=== PATIENT | male | born 1985 | race Caucasian/White ===

== ENCOUNTER 2017-06-11 11:34 | Emergency (ER) | payer MEDICAID, OTHER ==
[~2017-06-11] VITALS: Ht 177.8 cm; Wt 117.9 kg
[2017-06-11 12:03] VITALS: BP 143/82
[2017-06-11] MEDS ORDERED: HYDROcodone-ACET 10/325MG TAB PO ONE (12:15)
[2017-06-11] MEDS ORDERED: KETOROLAC TROMETH 60MG/2ML VIAL IM ONE (12:15)
== END 2017-06-11 13:15 | disposition home or self-care (01) ==
LOC: ER 11:34
DX: S30.0XXA Contusion of lower back and pelvis, initial encounter (principal); Z88.0 Allergy status to penicillin; W18.39XA Other fall on same level, initial encounter; Y93.89 Activity, other specified; Y99.8 Other external cause status; Y92.89 Other specified places as the place of occurrence of the external cause
CPT/HCPCS: 72220; 96372; 99284; J1885

== ENCOUNTER 2018-09-08 11:44 | Emergency (ER) | payer MEDICAID ==
[~2018-09-08] VITALS: Ht 177.8 cm; Wt 99.8 kg
[2018-09-08 12:21] VITALS: BP 150/71
[2018-09-08] MEDS ORDERED: IBUPROFEN 800 MG TAB PO ONE (12:45)
[2018-09-08] MEDS ORDERED: traMADol HCL 50 MG TAB PO ONE (13:00)
== END 2018-09-08 13:27 | disposition home or self-care (01) ==
LOC: ER 11:44
DX: S90.31XA Contusion of right foot, initial encounter (principal); Z88.0 Allergy status to penicillin; W22.8XXA Striking against or struck by other objects, initial encounter; Y93.89 Activity, other specified; Y99.8 Other external cause status; Y92.89 Other specified places as the place of occurrence of the external cause
CPT/HCPCS: 73630

== ENCOUNTER 2024-04-11 00:09 | Inpatient (IN) | payer MEDICAID ==
[~2024-04-11] VITALS: Ht 175.3 cm; Wt 96.9 kg
[2024-04-11] VITALS (37 sets, daily range): BP systolic 129–204; BP diastolic 68–113; PULSE 100–137; RESP 14–45; TEMP 99–100.2; O2SAT 97–100
[2024-04-11] MEDS: ROCURONIUM 10MG/ML 10ML VIAL IV ONE ×4 (00:12→01:58)
[2024-04-11] MEDS: ETOMIDATE (2MG/ML) 20ML VIAL IV ONE ×2 (00:12→00:16)
--- NOTE | 2024-04-11 00:26 | ED.PDOC ---
Altered Mental Status HPI Comments 38-year-old male who came to ER via EMS for altered level of consciousness. Per EMS, patient was combative, agitated and disoriented at home. Patient has history of fentanyl and methamphetamine abuse. Patient was given Narcan by family members as paramedics were called. On scene, patient was still A&O 4 albeit he is still agitated and combative. Patient was given Versed 5mg IM and another Versed 5mg IM, followed with another dose of Narcan 0.5 IN. Patient then started having altered level of consciousness with respiratory distress with agonal breathing, grunting and retractions 10 minutes prior to arrival to the ER. Saturating at 70's on room air. Chief Complaint: ALOC Time Seen by MD: 00:26 Primary Care Provider: UNKNOWN Reviewed Notes: Closet Organizer Notes Allergies: Coded Allergies: Penicillins (Verified Allergy, Severe, 09/08/18) Information Source: Emergency Med Personnel Mode of Arrival: EMS Severity: Unable to Care for Self, Unresponsive Timing: Minutes Duration: Since onset Prehospital treatment: Treatment Quality: Decreased Alertness, Change in Behavior, Confusion Recent: Medication/Drug Abuse History of: IV Drug Use Past Medical History PAST MEDICAL HISTORY: Unobtainable Surgical History: Unobtainable Family History Family History: Unobtainable Social History Smoker: Unobtainable Alcohol: Unobtainable Drugs: Unobtainable Lives In: Home Unable to Obtain due to: Altered Mental Status Physical Exam General Appearance: Normal, Severe Distress HEENT: Normal ENT Inspection, Pharynx Normal, TMs Normal Neck: Full Range of Motion, Non-Tender, Normal, Normal Inspection Respiratory: Chest Non-Tender, Lungs Clear, No Accessory Muscle Use, No Respiratory Distress, Normal Breath Sounds Cardiovascular: No Edema, No JVD, No Murmur, No Gallop, Normal Peripheral Pulses, Regular Rate/Rhythm Breast Exam: Deferred Gastrointestinal: No Organomegaly, Non Tender, No Pulsatile Mass, Normal Bowel Sounds, Soft Genitalia: Deferred Pelvic: Deferred Rectal: Deferred Extremities: No calf tenderness, Normal capillary refill, Normal inspection, Normal range of motion, Non-tender, No pedal edema Musculoskeletal : Apperance: Normal Neurologic: Alert, contract law specialist II-XII nml as Tested, No Motor Deficits, Normal Affect, Normal Mood, No Sensory Deficits Cerebellar Function: Normal Reflexes: Normal Skin: Dry, Normal Color, Warm Lymphatic: No Adenopathy Was a procedure done? Was a procedure done?: Yes Sedation Sedation?: Yes Informed consent obtained: No Sedation start time: 00:16 Sedation end time: 00:46 Sedation total time: Patient is still sedated at this time Intubation Indication: Altered Mental Status, Airway Protection Prep: Preoxygenation Pretreated with: Sedation Medicated with: Other (Etomidate, Rocuronium) Intubation Approach: Orotracheal Intubation size: cm (8.0) Informed consent obtained: No Risks/benefits/alt described: No Differential Diagnosis (ALOC) Differential Diagnosis: Encephalopathy, CVA, Drug Overdose, ETOH Intoxication X-Ray, Labs, Meds, VS Vital Signs Date Time Temp Pulse Resp B/P (MAP) Pulse Ox O2 Delivery O2 Flow Rate FiO2 04/11/24 05:04 137/79 04/11/24 04:02 127/62 04/11/24 04:00 115 04/11/24 03:45 118 25 127/62 (83) 98 04/11/24 03:32 127/78 04/11/24 03:32 127/78 04/11/24 03:32 127/78 04/11/24 03:30 128 28 127/78 (94) 100 04/11/24 03:27 120 29 131/68 (89) 99 45 04/11/24 03:15 122 27 131/68 (89) 98 04/11/24 03:00 124 33 138/66 (90) 98 04/11/24 02:52 167/98 04/11/24 02:50 126 34 167/98 (121) 99 04/11/24 02:45 130 33 167/98 (121) 98 04/11/24 02:37 137 20 155/78 100 45 04/11/24 02:30 124 19 160/86 (110) 98 04/11/24 02:15 127 20 167/95 (119) 98 04/11/24 02:00 127 14 184/97 (126) 100 04/11/24 02:00 45 04/11/24 01:58 155/78 04/11/24 01:48 137 14 155/78 (103) 100 100 04/11/24 01:30 155/78 04/11/24 01:30 141 14 155/78 (103) 99 04/11/24 01:26 155/78 04/11/24 01:14 179/105 04/11/24 01:00 204/113 04/11/24 01:00 125 12 179/105 (129) 99 04/11/24 00:42 204/113 04/11/24 00:26 141 04/11/24 00:18 137 15 204/113 (143) 98 04/11/24 00:17 204/113 04/11/24 00:16 98.9 129 204/113 (143) 88 98.9 04/11/24 00:12 204/113 04/11/24 00:09 99.1 122 14 204/111 (142) 86 Lab Test 04/11/24 03:08 04/11/24 01:51 04/11/24 00:25 Range/Units Blood Gas Specimen Type Arterial Arterial Blood Gas Sample Site Right radial Right radial Blood Gas Patient Temperature 37.0 37.0 Arterial Blood Date Drawn [id number] Arterial Blood pH 7.386 7.192 *L 7.350-7.450 Arterial Blood Partial Pressure CO2 48.6 H 86.4 *H 35.0-48.0 mmHg Arterial Blood Partial Pressure O2 98.9 305.3 *H 83.0-108.0 mmHg Arterial Blood HCO3 28.5 H 32.4 H 21.0-28.0 mmol/L Arterial Blood Oxygen Saturation 97.5 99.7 H 94.0-98.0 % Arterial Blood Base Excess 2.6 1.1 -2.0-3.0 mmol/L Arterial Blood Oxyhemoglobin 96.2 98.2 H 94.0-98.0 % Arterial Blood Carboxyhemoglobin 0.7 0.8 0.5-1.5 % Arterial Blood Methemoglobin 0.6 0.7 0.0-1.5 % Chad Test Modified Modified Blood Gas Total Hemoglobin 14.60 15.40 13.5-17.5 g/dL Blood Gas Set Respiration Rate 20.0 14.0 Blood Gas Modality Vent - ac Vent - ac FiO2 % 45.0 100.0 Blood Gas Tidal Volume 500.0 500.0 Blood Gas PEEP or CPAP 5.0 5.0 Blood Gas Critical Value Read Back Yes Blood Gas Notified Whom Dr. tracy Blood Gas Notified Time [id number] Blood Gas Notified By Mud Mixer Operator carlotn sylvester White Blood Count 13.1 H 4.4-10.8 10^3/uL Red Blood Count 5.39 4.5-5.90 10^6/uL Hemoglobin 14.5 13.5-17.5 g/dL Hematocrit 44.7 41.0-53.0 % Mean Corpuscular Volume 83.1 80.0-100.0 fL Mean Corpuscular Hemoglobin 27.0 L 28.0-32.0 pg Mean Corpuscular Hemoglobin Concent 32.5 32.0-36.0 g/dL Red Cell Distribution Width 14.5 H 11.8-14.3 % Platelet Count 358 140-450 10^3/uL Mean Platelet Volume 6.9 6.9-10.8 fL Neutrophils (%) (Auto) 71.3 37.0-80.0 % Lymphocytes (%) (Auto) 19.9 10.0-50.0 % Monocytes (%) (Auto) 5.5 0.0-12.0 % Eosinophils (%) (Auto) 2.9 0.0-7.0 % Basophils (%) (Auto) 0.4 0.0-2.0 % Neutrophils # (Auto) 9.4 H 1.6-8.6 10 ^3/uL Lymphocytes # (Auto) 2.6 0.4-5.4 10 ^3/uL Monocytes # (Auto) 0.7 0-1.3 10 ^3/uL Eosinophils # (Auto) 0.4 0-0.8 10 ^3/uL Basophils # (Auto) 0.1 0-0.2 10 ^3/uL Nucleated Red Blood Cells 0.1 % Prothrombin Time 11.1 9.3-11.8 sec Prothrombin Time INR 1.05 0.9-1.15 Activated Partial Thromboplast Time 35.8 H 24.5-34.5 SEC Sodium Level 136 136-145 mmol/L Potassium Level 4.0 3.5-5.1 mmol/L Chloride Level 103 98-107 mmol/L Carbon Dioxide Level 29 20-31 mmol/L Anion Gap 4 L 5-15 Blood Urea Nitrogen 12 9-23 mg/dL Creatinine 1.09 0.700-1.30 mg/dL Glomerular Filtration Rate Calc 90 >90 mL/min BUN/Creatinine Ratio 11.0 10.0-20.0 Serum Glucose 126 H 74-106 mg/dL Lactic Acid Level 1.1 0.4-2.0 mmol/L Calcium Level 9.4 8.7-10.4 mg/dL Magnesium Level 2.1 1.6-2.6 mg/dL Total Bilirubin 0.2 0.2-1.0 mg/dL Aspartate Amino Transferase (AST) 27 13-40 U/L Alanine Aminotransferase (ALT) 31 7-40 U/L Alkaline Phosphatase 93 46-116 U/L Total Protein 7.6 5.7-8.2 g/dL Albumin 4.3 3.2-4.8 g/dL Plasma/Serum Blood Alcohol 7.3 <10 mg/dL Current Medications Medications (Trade) Dose Ordered Sig/Jen Route Start Time Stop Time Status Last Admin Propofol 100 ml @ 2.73 mls/hr Q24H IV 04/11/24 00:30 04/11/24 01:00 Sodium Chloride 1,000 ml @ 1,000 mls/hr Q1H ONCE IVB 04/11/24 00:30 04/11/24 01:29 DC 04/11/24 00:30 Ceftriaxone Sodium 50 ml @ 100 mls/hr ONCE ONCE IV 04/11/24 00:30 04/11/24 00:59 DC 04/11/24 00:30 Piperacillin Sod/ Tazobactam Sod 100 ml @ 100 mls/hr ONCE ONCE IV 04/11/24 00:30 04/11/24 01:29 DC 04/11/24 00:30 Sodium Chloride 1,000 ml @ 60 mls/hr [id number] IV 04/11/24 02:30 04/11/24 02:47 Midazolam HCl 50 ml @ 1 mls/hr Q24H IV 04/11/24 03:30 04/11/24 03:32 Fentanyl Citrate 100 mcg ONCE ONCE IV 04/11/24 04:15 04/11/24 04:16 DC 04/11/24 05:04 Time of 1ST Reevaluation: 00:18 Reevaluation 1ST: Unchanged Time of 2ND Reevaluation: 01:00 Reevaluation 2ND: Unchanged Patient Education/Counseling: Pt Unresponsive Family Education/Counseling: No Family Present Departure 1 Departure Time of Disposition: 01:15 Impression: Primary Impression: Altered mental status Additional Impressions: Aspiration pneumonia Respiratory failure with hypoxia Disposition: 09 ADMITTED INPATIENT Condition: Critical Critical Care Note Critical Care Time?: Yes (35 min-critical care time only) Critical care comment: Total critical care time: Approximately 36 minutes Due to a high probability of clinically significant, life threatening deterioration, the patient required my highest level of preparedness to intervene emergently and I personally spent this critical care time directly and personally managing the patient. This critical care time included obtaining a history; examining the patient; pulse oximetry; ordering and review of studies; arranging urgent treatment with development of a management plan; evaluation of patient's response to treatment; frequent reassessment; and, discussions with other providers. This critical care time was performed to assess and manage the high probability of imminent, life-threatening deterioration that could result in multi-organ failure. It was exclusive of separately billable procedures and treating other patients. Stability Stability form required: No Heart Score Heart Score: Heart Score Response (Comments) Value History N/A 0 EKG N/A 0 Age N/A 0 Risk Factors N/A 0 Troponin N/A 0 Total 0 I personally scribed for CRISTI TRACY MD ([email or web address]) on 04/11/24 at 00:26. Electronically submitted by Piyush Spear ([email or web address]). I personally scribed for CRISTI TRACY MD ([email or web address]) on 04/11/24 at 00:43. Electronically submitted by Piyush Spear ([email or web address]). CRISTI TRACY MD Apr 11, 2024 00:26
[2024-04-11] MEDS: SODIUM CHLORIDE 0.9% 1,000 ML IVB ONE (00:30)
[2024-04-11] MEDS: cefTRIAXone 1GM/50ML D5W 50 ML IV ONE (00:30)
[2024-04-11] MEDS: PIPERACILLIN-TAZOB 3.375GM 100 ML IV ONE (00:30)
[2024-04-11] MEDS: PROPOFOL 100 ML IV ONE (00:42)
[2024-04-11 00:43] LABS: Basophils # (auto) 0.1 10 ^3/uL (0-0.2); Basophils % (auto) 0.4 % (0.0-2.0); Eosinophils # (auto) 0.4 10 ^3/uL (0-0.8); Eosinophils % (auto) 2.9 % (0.0-7.0); Hematocrit 44.7 % (41.0-53.0); Hemoglobin 14.5 g/dL (13.5-17.5); Lymphocytes # (auto) 2.6 10 ^3/uL (0.4-5.4); Lymphocytes % (auto) 19.9 % (10.0-50.0); Mean Corpuscular Hgb Conc. 32.5 g/dL (32.0-36.0); Mean Corpuscular Volume 83.1 fL (80.0-100.0); Monocytes # (auto) 0.7 10 ^3/uL (0-1.3); Monocytes % (auto) 5.5 % (0.0-12.0); Neutrophils # (auto) 9.4 10 ^3/uL (1.6-8.6); Neutrophils % (auto) 71.3 % (37.0-80.0); Nucleated Red Blood Cells % 0.1 %; Platelet Count (auto) 358 10^3/uL (140-450); Red Blood Cells 5.39 10^6/uL (4.5-5.90); Red Cell Distribution Width 14.5 % (11.8-14.3); White Blood Cell 13.1 10^3/uL (4.4-10.8)
[2024-04-11] MEDS: PROPOFOL 100 ML IV SCH (01:00)
[2024-04-11 01:03] LABS: Alanine Aminotransferase 31 U/L (7-40); Albumin 4.3 g/dL (3.2-4.8); Alkaline Phosphatase 93 U/L (46-116); Anion Gap 4 (5-15); Aspartate Aminotransferase 27 U/L (13-40); Blood Urea Nitrogen 12 mg/dL (9-23); Calcium 9.4 mg/dL (8.7-10.4); Carbon Dioxide 29 mmol/L (20-31); Chloride 103 mmol/L (98-107); Magnesium 2.1 mg/dL (1.6-2.6); Sodium 136 mmol/L (136-145)
[2024-04-11 01:04] LABS: Total Protein 7.6 g/dL (5.7-8.2)
--- NOTE | 2024-04-11 01:05 | DVH ---
EXAM: XY CHEST PORTABLE CLINICAL HISTORY: INTUBATION TECHNIQUE: Single AP view of the chest WID: COMPARISON: None FINDINGS: Lines and tubes: Endotracheal tube projects 0.9 cm above the tiffany. Gastric tube descends into the s tomach with the tip projecting over the gastric fundus. Chest: Upper limits of normal-sized heart. Small right pleural effusion and right basilar consolidation. Pro minence of the pulmonary vasculature No pneumothorax. The osseous structures are grossly intact. IMPRESSION: 1. Endotracheal and orogastric tubes in place as described. The endotracheal tube could be retracted 1.5 cm for more optimal positioning. 2. Prominence of the central pulmonary vasculature and upper limits of normal-sized heart. 3. Small right pleural effusion and right basal consolidation which could reflect atelectasis or pneu monia.
[2024-04-11 01:09] LABS: Bilirubin, Total 0.2 mg/dL (0.2-1.0); Glucose 126 mg/dL (74-106)
[2024-04-11 01:21] LABS: INR 1.05 (0.9-1.15); Partial Thromboplastin Time 35.8 SEC (24.5-34.5); Prothrombin Time 11.1 sec (9.3-11.8)
[2024-04-11 01:49] LABS: Blood Alcohol 7.3 mg/dL (<10)
[2024-04-11 01:57] LABS: Base Excess 1.1 mmol/L (-2.0-3.0)
--- NOTE | 2024-04-11 02:02 | DVH ---
CLINICAL HISTORY: ALOC, suspect trauma TECHNIQUE: CT exam of the cervical spine was performed without intravenous contrast. This exam was pe rformed according to our departmental dose optimization program. Up-to-date CT equipment and radiatio n dose reduction techniques are utilized as appropriate. COMPARISON: None FINDINGS: There is normal cervical alignment. The vertebral body heights are maintained. No acute cervical frac ture or subluxation is identified. Mild multilevel cervical spondylosis with multilevel osteophyte fo rmation. Multilevel facet and uncovertebral hypertrophy results in multilevel bony neural foraminal s tenosis which is up to a moderate degree on the left and mild on the right at C3-C4. 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 No significant central o r neural foraminal narrowing is identified. The paraspinous soft tissues are unremarkable. Interlobu lar septal thickening in the lung apices. Endotracheal and orogastric tubes are in place. Fluid layer s in the naso and oropharynx. Paranasal sinus mucosal thickening. Multiple dental caries and periapical lucencies within visualized maxillary and mandibular teeth. IMPRESSION: 1. No acute fracture or traumatic malalignment. 2. Mild cervical spondylosis with moderate left and mild right neural foraminal stenosis at C3-C4. 3. Interstitial pulmonary edema in the visualized lung apices. 4. Endotracheal and orogastric tubes in place. 5. Multiple dental caries and periapical lucencies within visualized maxillary and mandibular teeth.
--- NOTE | 2024-04-11 02:06 | DVH ---
CLINICAL HISTORY: ALOC TECHNIQUE: Helical imaging carried out from skull base to vertex without intravenous contrast. This e xam was performed according to our departmental dose optimization program. Up-to-date CT equipment an d radiation dose reduction techniques are utilized as appropriate. COMPARISON: None FINDINGS: Low-lying cerebellar tonsils The ventricles and subarachnoid spaces are normal in size and configuration. There is no midline alesia ft or mass effect. The elliott white matter interfaces are maintained. The basal cisterns are patent. Th ere is no evidence of acute intracranial hemorrhage or extra-axial fluid collection. The mastoid air cells are well aerated. There is mild paranasal sinus mucosal thickening. IMPRESSION: 1. No acute intracranial abnormality. 2. Low-lying cerebellar tonsils.
[2024-04-11] MEDS ORDERED: ONDANSETRON HCL 4 MG/2 ML VIAL IV PRN (02:30)
[2024-04-11] MEDS ORDERED: DOCUSATE SOD 100 MG CAP PO PRN (02:30)
[2024-04-11] MEDS ORDERED: ACETAMINOPHEN 325 MG TAB PO PRN (02:30)
[2024-04-11] MEDS: SODIUM CHLORIDE 0.9% 1,000 ML IV SCH (02:47)
[2024-04-11 03:12] LABS: Base Excess 2.6 mmol/L (-2.0-3.0)
[2024-04-11] MEDS: MIDAZOLAM DRIP 50 mg/50mL 50 ML IV SCH (03:32)
[2024-04-11] MEDS: fentaNYL CITRATE 100 MCG/2 ML VL IV ONE (05:04)
[2024-04-11] MEDS ORDERED: MORPHINE SULFATE INJ 2 MG/ml SYRG IV PRN (05:15)
[2024-04-11] MEDS ORDERED: NITROGLYCERIN 0.4 MG SL TAB SL PRN (05:15)
--- NOTE | 2024-04-11 05:17 | DVHHP2 ---
History of Present Illness Reason for Visit: Altered mental status History of Present Illness The patient is a 38-year-old male with unknown past medical history presented to [facility] ED for evaluation of altered level of consciousness. As reported by EMS, patient was combative, agitated, and disoriented at home. Patient was noted to have history of fentanyl and methamphetamine abuse and was given Narcan by family member as trouble tracer were called. On the scene, patient continued to be agitated and combative, was given Versed 5 mg a.m., followed by another dose of Narcan 0.5 injectable. Patient became altered with respiratory distress agonal breathing, grunting, retractions 10 minutes prior to arrival to the ED, O2 saturation in the 70s on room air and was subsequently intubated due to high probability of clinically significant life-threatening deterioration. Laboratory data shows elevated WBC 13.1, platelets 358, sodium 136, potassium 4.0, BUN 12, creatinine 1.09, glucose 126, plasma/serum alcohol 7.3. Chest x-ray revealing small right pleural effusion and right basal consolidation which could reflect atelectasis or pneumonia. Please see medication orders section in the computer. On my assessment, patient remains fully intubated, no diaphoresis, no diarrhea, no vomiting, no fever, no chills. Patient was admitted for further evaluation and medical management. Past Medical History No past medical history on file Past Surgical History No past surgical history on file Family History Reviewed, noncontributory to the management of this case. Past Social History The patient lives at home, no history of smoking, alcohol, uses fentanyl and methamphetamine. Review of Systems Constitutional: No: Fever, Chills, Sweats, Weakness, Malaise, Other Eyes: No: Pain, Vision change, Conjunctivae inflammation, Eyelid inflammation, Other, Redness ENT: No: Ear pain, Ear discharge, Nose pain, Nose discharge, Nose congestion, Mouth pain, Mouth swelling, Throat pain, Throat swelling, Other Respiratory: Shortness of breath; No: Cough, Dry, SOB with excertion, Wheezing, Hemoptysis, Pleuritic Pain, Sputum, Wheezing, Other Cardiovascular: No: Chest Pain, Palpitations, Orthopnea, Paroxysmal Noc. Dyspnea, Edema, Lt Headedness, Other Gastrointestinal: No: Nausea, Vomiting, Abdominal Pain, Diarrhea, Constipation, Melena, Hematochezia, Other Genitourinary: No Dysuria, No Frequency, No Incontinence, No Hematuria, No Retention, No Other Musculoskeletal: No: other, neck pain, shoulder pain, arm pain, back pain, hand pain, leg pain, foot pain Skin: No: Rash, Lesions, Jaundice, Bruising, Other Neurological: Other (Altered level of consciousness); No: Weakness, Numbness, Incoordination, Change in speech, Confusion, Seizures Allergies: Coded Allergies: Penicillins (Verified Allergy, Severe, 09/08/18) Medications Current Medications Medications Dose Ordered Sig/Jen Route Start Time Stop Time Status Last Admin Dose Admin Propofol 100 ml @ 2.73 mls/hr Q24H IV 04/11/24 00:30 04/11/24 01:00 2.73 MLS/HR Ceftriaxone Sodium 50 ml @ 100 mls/hr DAILY@09 IV 04/12/24 09:00 Azithromycin 250 ml @ 125 mls/hr DAILY IV 04/11/24 10:00 Sodium Chloride 1,000 ml @ 60 mls/hr [id number] IV 04/11/24 02:30 04/11/24 02:47 60 MLS/HR Acetaminophen/ Hydrocodone Bitart 1 tab Q4HP PRN PO 04/11/24 02:30 Ondansetron HCl 4 mg Q4HP PRN IV 04/11/24 02:30 Docusate Sodium 100 mg BIDPRN PRN PO 04/11/24 02:30 Acetaminophen 650 mg Q6HP PRN PO 04/11/24 02:30 Midazolam HCl 50 ml @ 1 mls/hr Q24H IV 04/11/24 03:30 04/11/24 03:32 1 MLS/HR Exam Vital Signs Vital Signs Date Time Temp Pulse Resp B/P (MAP) Pulse Ox O2 Delivery O2 Flow Rate FiO2 04/11/24 05:04 137/79 04/11/24 04:00 115 04/11/24 03:45 25 98 04/11/24 03:27 45 04/11/24 00:16 98.9 98.9 General Appearance: Other (Fully intubated) HEENT: Atraumatic, PERRLA, EOMI, Mucous membr. moist/pink Respiratory: Normal air movement, Other (Fully intubated) Cardiovascular: Regular rate, Normal S1, Normal S2, No murmurs Abdominal: Normal bowel sounds, Soft, No tenderness, No hepatospenomegaly, No masses Extremities: No clubbing, No cyanosis, No edema, Normal pulses, No tenderness/swelling Skin: No rashes, No breakdown, No significant lesion Neuro: Other (Altered level of consciousness) Psych/Mental Status: Other (Altered mental status) Labs/Xrays Labs Test 04/11/24 03:08 04/11/24 01:51 04/11/24 00:25 Range/Units Blood Gas Specimen Type Arterial Blood Gas Sample Site Right radial Blood Gas Patient Temperature 37.0 Arterial Blood Date Drawn [id number] Arterial Blood pH 7.386 7.350-7.450 Arterial Blood Partial Pressure CO2 48.6 H 35.0-48.0 mmHg Arterial Blood Partial Pressure O2 98.9 83.0-108.0 mmHg Arterial Blood HCO3 28.5 H 21.0-28.0 mmol/L Arterial Blood Oxygen Saturation 97.5 94.0-98.0 % Arterial Blood Base Excess 2.6 -2.0-3.0 mmol/L Arterial Blood Oxyhemoglobin 96.2 94.0-98.0 % Arterial Blood Carboxyhemoglobin 0.7 0.5-1.5 % Arterial Blood Methemoglobin 0.6 0.0-1.5 % Chad Test Modified Blood Gas Total Hemoglobin 14.60 13.5-17.5 g/dL Blood Gas Set Respiration Rate 20.0 Blood Gas Modality Vent - ac FiO2 % 45.0 Blood Gas Tidal Volume 500.0 Blood Gas PEEP or CPAP 5.0 Blood Gas Critical Value Read Back Yes Blood Gas Notified Whom Dr. tracy Blood Gas Notified Time [id number] Blood Gas Notified By Jesus Alberto sylvester White Blood Count 13.1 H 4.4-10.8 10^3/uL Red Blood Count 5.39 4.5-5.90 10^6/uL Hemoglobin 14.5 13.5-17.5 g/dL Hematocrit 44.7 41.0-53.0 % Mean Corpuscular Volume 83.1 80.0-100.0 fL Mean Corpuscular Hemoglobin 27.0 L 28.0-32.0 pg Mean Corpuscular Hemoglobin Concent 32.5 32.0-36.0 g/dL Red Cell Distribution Width 14.5 H 11.8-14.3 % Platelet Count 358 140-450 10^3/uL Mean Platelet Volume 6.9 6.9-10.8 fL Neutrophils (%) (Auto) 71.3 37.0-80.0 % Lymphocytes (%) (Auto) 19.9 10.0-50.0 % Monocytes (%) (Auto) 5.5 0.0-12.0 % Eosinophils (%) (Auto) 2.9 0.0-7.0 % Basophils (%) (Auto) 0.4 0.0-2.0 % Neutrophils # (Auto) 9.4 H 1.6-8.6 10 ^3/uL Lymphocytes # (Auto) 2.6 0.4-5.4 10 ^3/uL Monocytes # (Auto) 0.7 0-1.3 10 ^3/uL Eosinophils # (Auto) 0.4 0-0.8 10 ^3/uL Basophils # (Auto) 0.1 0-0.2 10 ^3/uL Nucleated Red Blood Cells 0.1 % Prothrombin Time 11.1 9.3-11.8 sec Prothrombin Time INR 1.05 0.9-1.15 Activated Partial Thromboplast Time 35.8 H 24.5-34.5 SEC Sodium Level 136 136-145 mmol/L Potassium Level 4.0 3.5-5.1 mmol/L Chloride Level 103 98-107 mmol/L Carbon Dioxide Level 29 20-31 mmol/L Anion Gap 4 L 5-15 Blood Urea Nitrogen 12 9-23 mg/dL Creatinine 1.09 0.700-1.30 mg/dL Glomerular Filtration Rate Calc 90 >90 mL/min BUN/Creatinine Ratio 11.0 10.0-20.0 Serum Glucose 126 H 74-106 mg/dL Lactic Acid Level 1.1 0.4-2.0 mmol/L Calcium Level 9.4 8.7-10.4 mg/dL Magnesium Level 2.1 1.6-2.6 mg/dL Total Bilirubin 0.2 0.2-1.0 mg/dL Aspartate Amino Transferase (AST) 27 13-40 U/L Alanine Aminotransferase (ALT) 31 7-40 U/L Alkaline Phosphatase 93 46-116 U/L Total Protein 7.6 5.7-8.2 g/dL Albumin 4.3 3.2-4.8 g/dL Plasma/Serum Blood Alcohol 7.3 <10 mg/dL PATIENT: HANANE RAE ACCT: [id number] UNIT: [id number] : 1985 LOC: ER ROOM / BED: / AGE / SEX: 38 / M ADM STATUS: REG ER SERVICE [id number] ORDERING PHYSICIAN: CRISTI TRACY MD PROCEDURE(s): HWOCT - HEAD WITHOUT CONTRAST REASON: ALOC ORDER NUMBER(s): [id number], ACCESSION NUMBER(s): [id number] CLINICAL HISTORY: ALOC TECHNIQUE: Helical imaging carried out from skull base to vertex without intravenous contrast. This exam was performed according to our departmental dose optimization program. Up-to-date CT equipment and radiation dose reduction t echniques are utilized as appropriate. COMPARISON: None FINDINGS: Low-lying cerebellar tonsils The ventricles and subarachnoid spaces are normal in size and configuration. There is no midline shift or mass effect. The elliott white matter interfaces are maintained. The basal cisterns are patent. There is no evidence of acute intracranial hemorrhage or extra-axial fluid collection. The mastoid air cells are well aerated. There is mild paranasal sinus mucosal thickening. IMPRESSION: 1. No acute intracranial abnormality. 2. Low-lying cerebellar tonsils. ORDERING PHYSICIAN: CRISTI TRACY MD PROCEDURE(s): CS2 - CERVICAL WITHOUT CONTRAST REASON: ALOC, suspect trauma ORDER NUMBER(s): [id number], ACCESSION NUMBER(s): [id number] CLINICAL HISTORY: ALOC, suspect trauma TECHNIQUE: CT exam of the cervical spine was performed without intravenous contrast. This exam was performed according to our departmental dose optimization program. Up-to-date CT equipment and radiation dose reduction techniques are utilized as appropriate. COMPARISON: None FINDINGS: There is normal cervical alignment. The vertebral body heights are maintained. No acute cervical fracture or subluxation is identified. Mild multilevel cervi jhonny spondylosis with multilevel osteophyte formation. Multilevel facet and uncovertebral hypertrophy results in multilevel bony neural foraminal stenosis which is up to a moderate degree on the left and mild on the right at C3-C4. 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 No significant central or neural foraminal narrowing is iden tified. The paraspinous soft tissues are unremarkable. Interlobular septal thickening in the lung apices. Endotracheal and orogastric tubes are in place. Fluid layers in the naso and oropharynx. Paranasal sinus mucosal thickening. Multiple dental caries and periapical lucencies within visualized maxillary and mandibular teeth. IMPRESSION: 1. No acute fracture or traumatic malalignment. 2. Mild cervical spondylosis with moderate left and mild right neural foraminal stenosis at C3-C4. 3. Interstitial pulmonary edema in the visualized lung apices. 4. Endotracheal and orogastric tubes in place. 5. Multiple dental caries and periapical lucencies within visualized maxillary and mandibular teeth. ORDERING PHYSICIAN: CRISTI TRACY MD PROCEDURE(s): CXRP - CHEST PORTABLE REASON: INTUBATION ORDER NUMBER(s): [id number], ACCESSION NUMBER(s): [id number] EXAM: XY CHEST PORTABLE CLINICAL HISTORY: INTUBATION TECHNIQUE: Single AP view of the chest WID: COMPARISON: None FINDINGS: Lines and tubes: Endotracheal tube projects 0.9 cm above the tiffany. Gastric tube descends into the stomach with the tip projecting over the gastric fundus. Chest: Upper limits of normal-sized heart. Small right pleural effusion and right basilar consolidation. Prominence of the pulmonary vasculature No pneumothorax. The osseous structures are grossly intact. IMPRESSION: 1. Endotracheal and orogastric tubes in place as described. The endotracheal tube could be retracted 1.5 cm for more optimal positioning. 2. Prominence of the central pulmonary vasculature and upper limits of normal- sized heart. 3. Small right pleural effusion and right basal consolidation which could reflect atelectasis or pneumonia. Assessment/Plan Assessment/Plan Altered mental status Leukocytosis, unspecified Aspiration pneumonia Acute respiratory failure with hypoxia Plan 1. Admit to intensive care unit 2. Breathing treatment 3. Pain control management 4. IV antibiotic management 5. Management of fluids and electrolytes 6. Consultation for pulmonology/hospitalist 7. Diagnostic test chest x-ray 8. DVT prophylaxis on SCDs 9. Repeat labs CBC, CMP in a.m. 10. Continue with current medical management 11. Treatment plan discussed with patient and RN. Patient verbalized understanding. Plan discussed with: Patient, Other (RN) My Orders Orders - GENNY LUGO DNP Procedure Category Date Status Time Azithromycin 500mg/ PHA 04/11/24 In Process 250ml (Zithromax 50 10:00 Complete Blood Count LAB 04/11/24 Logged 04:00 Comprehensive LAB 04/11/24 Logged Metabolic Panel 04:00 Allergies HANNAH 04/11/24 In Process 02:16 Code Status CODE 04/11/24 Transmitted 02:16 Sodium Chloride 0.9% PHA 04/11/24 In Process 02:30 Oxygen Per Hour RT 04/11/24 Transmitted 02:16 Hydrocodone-Acet PHA 04/11/24 In Process 5/325mg Tab (Rodney 02:30 Ondansetron Hcl PHA 04/11/24 In Process (Zofran) 02:30 Docusate Sodium PHA 04/11/24 In Process Capsule (Colace 02:30 Fall Risk Precautions HANNAH 04/11/[address] 02:16 Complete Blood Count LAB 04/12/24 Verified 04:00 Comprehensive LAB 04/12/24 Verified Metabolic Panel 04:00 Npo (Nothing By DIET 04/11/24 Transmitted Mouth) Diet Breakfast Condition: Serious HANNAH 04/11/24 In Process 02:16 Acetaminophen Tablet PHA 04/11/24 In Process (Tylenol Tablet) 02:30 Sequential HANNAH 04/11/24 In Process Compression Device Ceftriaxone 1gm/50ml PHA 04/12/24 In Process D5w (Rocephin) 09:00 Problem List: (1) Altered mental status (2) Aspiration pneumonia (3) Leukocytosis, unspecified (4) Respiratory failure with hypoxia Date of Service: Apr 11, 2024 Billing Provider: GENNY LUGO DNP Common Visit Codes: [id number] INP/OBS CARE (HIGH) GENNY LUGO DNP Apr 11, 2024 05:17
[2024-04-11 06:33] LABS: Basophils # (auto) 0 10 ^3/uL (0-0.2); Basophils % (auto) 0.2 % (0.0-2.0); Eosinophils # (auto) 0.1 10 ^3/uL (0-0.8); Eosinophils % (auto) 0.6 % (0.0-7.0); Hematocrit 41.6 % (41.0-53.0); Lymphocytes # (auto) 1.7 10 ^3/uL (0.4-5.4); Lymphocytes % (auto) 12.4 % (10.0-50.0); Mean Corpuscular Hemoglobin 27.4 pg (28.0-32.0); Mean Corpuscular Hgb Conc. 33.7 g/dL (32.0-36.0); Mean Corpuscular Volume 81.3 fL (80.0-100.0); Monocytes % (auto) 7.4 % (0.0-12.0); Neutrophils # (auto) 10.6 10 ^3/uL (1.6-8.6); Neutrophils % (auto) 79.4 % (37.0-80.0); Platelet Count (auto) 342 10^3/uL (140-450); Red Blood Cells 5.12 10^6/uL (4.5-5.90); Red Cell Distribution Width 14.1 % (11.8-14.3); White Blood Cell 13.4 10^3/uL (4.4-10.8)
[2024-04-11 06:45] LABS: Alanine Aminotransferase 30 U/L (7-40); Albumin 3.8 g/dL (3.2-4.8); Alkaline Phosphatase 84 U/L (46-116); Anion Gap 8 (5-15); Aspartate Aminotransferase 27 U/L (13-40); BUN/Creatinine Ratio 10.5 (10.0-20.0); Bilirubin, Total 0.4 mg/dL (0.2-1.0); Blood Urea Nitrogen 10 mg/dL (9-23); Calcium 9.4 mg/dL (8.7-10.4); Carbon Dioxide 27 mmol/L (20-31); Chloride 102 mmol/L (98-107); Glucose 96 mg/dL (74-106); Potassium 3.9 mmol/L (3.5-5.1); Sodium 137 mmol/L (136-145)
[2024-04-11 07:58] LABS: Base Excess 2.4 mmol/L (-2.0-3.0)
[2024-04-11 08:13] LABS: Urine Bacteria None Seen /hpf (None Seen)
[2024-04-11 08:28] LABS: Urine Blood Negative /uL (Negative); Urine Clarity Turbid (Clear); Urine Color Yellow (Yellow); Urine Protein, UAD TRACE (Negative); Urine Specific Gravity 1.026 (1.001-1.035); Urine Squamous Epithelial Cell None Seen /hpf (<5); Urine Urobilinogen Normal (Negative); Urine WBC 2 /hpf (0 - 3)
[2024-04-11 08:38] LABS: Opiate Scree,Urine Neg (NEGATIVE)
[2024-04-11 08:48] LABS: Amphetamine Screen, Urine Pos (NEGATIVE); Barbiturate Scree,Urine Neg (NEGATIVE); Benzodiazephine Screen, Urine Pos (NEGATIVE); Cannabinoid Screen, Urine Pos (NEGATIVE); Cocaine Screen, Urine Pos (NEGATIVE); Phencyclidine Screen, Urine Neg (NEGATIVE)
[2024-04-11] MEDS: AZITHROMYCIN 500MG/ 250ML 250 ML IV SCH (10:54)
[2024-04-11] MEDS ORDERED: ACETAMINOPHEN 650 mg PER 20.3 mL UD PO PRN (11:30)
--- NOTE | 2024-04-11 12:14 | DVHPN2 ---
Subjective Altered mental status Reviewed: Care Plan, H&P, Labs, Medications, Previous Orders, Radiology, Other Review of systems ALOC Changes from previous H/P or p: No Changes Eyes: No Pain, No Vision change, No Conjunctivae inflammation, No Eyelid inflammation, No Other, No Redness ENT: No Ear pain, No Ear discharge, No Nose pain, No Nose discharge, No Nose congestion, No Mouth pain, No Mouth swelling, No Throat pain, No Throat swelling, No Other Cardiovascular: No Chest Pain, No Palpitations, No Orthopnea, No Paroxysmal Noc. Dyspnea, No Edema, No Lt Headedness, No Other Respiratory: No Cough, No Dry; Shortness of breath; No SOB with excertion, No Wheezing, No Hemoptysis, No Pleuritic Pain, No Sputum, No Other Gastrointestinal: No Nausea, No Vomiting, No Abdominal Pain, No Diarrhea, No Constipation, No Melena, No Hematochezia, No Other Genitourinary: No Dysuria, No Frequency, No Incontinence, No Hematuria, No Retention, No Other Musculoskeletal: No other, No neck pain, No shoulder pain, No arm pain, No back pain, No hand pain, No leg pain, No foot pain Skin: No Rash, No Lesions, No Jaundice, No Bruising, No Other Objective Vitals Vital Signs Date Time Temp Pulse Resp B/P (MAP) Pulse Ox O2 Delivery O2 Flow Rate FiO2 04/11/24 10:56 137/78 04/11/24 10:44 106 25 99 30 04/11/24 10:00 100.6 100.6 04/11/24 07:30 Mechanical Ventilator+ Intake/Output Intake and Output 04/11/24 07:00 Intake Total 5 ml Balance 5 ml Intake IV Total 5 ml Exam Altered mental status. General Appearance: Other (Intubated and sedated) Lungs: Clear to auscultation Cardiovascular: Regular rate, Normal S1, Normal S2, No murmurs, Other Abdomen: Normal bowel sounds, Soft Skin: Dry, Intact Psych/Mental Status: Other (Intubated sedated) Medications Current Medications Medications Dose Ordered Sig/Jen Route Start Time Stop Time Status Last Admin Dose Admin Propofol 100 ml @ 2.73 mls/hr Q24H IV 04/11/24 00:30 04/11/24 10:56 27.3 MLS/HR Sodium Chloride 1,000 ml @ 60 mls/hr [id number] IV 04/11/24 02:30 04/11/24 10:54 60 MLS/HR Acetaminophen/ Hydrocodone Bitart 1 tab Q4HP PRN PO 04/11/24 02:30 Ondansetron HCl 4 mg Q4HP PRN IV 04/11/24 02:30 Docusate Sodium 100 mg BIDPRN PRN PO 04/11/24 02:30 Acetaminophen 650 mg Q6HP PRN PO 04/11/24 02:30 Midazolam HCl 50 ml @ 1 mls/hr Q24H IV 04/11/24 03:30 04/11/24 07:49 7 MLS/HR Nitroglycerin 0.4 mg Q5MINP PRN SL 04/11/24 05:15 Morphine Sulfate 2 mg Q30M PRN IV 04/11/24 05:15 Acetaminophen 650 mg Q4HP PRN PO 04/11/24 11:30 Clindamycin Phosphate 50 ml @ 50 mls/hr Q8HR IV 04/11/24 14:00 Levofloxacin/ Dextrose 100 ml @ 100 mls/hr DAILY IV 04/12/24 10:00 Laboratory Results Laboratory Tests 04/11/24 05:13 Chemistry Test 04/11/24 00:25 04/11/24 05:13 Albumin 4.3 g/dL (3.2-4.8) 3.8 g/dL (3.2-4.8) Calcium Level 9.4 mg/dL (8.7-10.4) 9.4 mg/dL (8.7-10.4) Magnesium Level 2.1 mg/dL (1.6-2.6) Total Protein 7.6 g/dL (5.7-8.2) 7.0 g/dL (5.7-8.2) Coagulation Test 04/11/24 00:25 Prothrombin Time 11.1 sec (9.3-11.8) Prothrombin Time INR 1.05 (0.9-1.15) Activated Partial Thromboplast Time 35.8 SEC (24.5-34.5) H LFT Test 04/11/24 00:25 04/11/24 05:13 Alanine Aminotransferase (ALT) 31 U/L (7-40) 30 U/L (7-40) Alkaline Phosphatase 93 U/L (46-116) 84 U/L (46-116) Aspartate Amino Transferase (AST) 27 U/L (13-40) 27 U/L (13-40) Total Bilirubin 0.2 mg/dL (0.2-1.0) 0.4 mg/dL (0.2-1.0) Urinalysis Test 04/11/24 07:55 Urine Color Yellow (Yellow) Urine Clarity Turbid (Clear) H Urine pH 7.0 (5.0-9.0) Urine Specific [place] 1.026 (1.001-1.035) Urine Protein Trace (Negative) H Urine Ketones 2+ (Negative) H Urine Blood Negative /uL (Negative) Urine Nitrite Negative (Negative) Urine Bilirubin Negative (Negative) Urine Urobilinogen Normal mg/dL (Negative) Urine Leukocyte Esterase Negative /uL (Negative) Urine RBC 45 /hpf (0 - 3) Urine WBC 2 /hpf (0 - 3) Urine Squamous Epithelial Cells None seen /hpf (<5) Urine Bacteria None seen /hpf (None Seen) Urine Glucose Normal mg/dL (Normal) Blood Gas Results Test 04/11/24 01:51 04/11/24 03:08 04/11/24 07:35 Arterial Blood pH 7.192 (7.350-7.450) 7.386 (7.350-7.450) 7.460 (7.350-7.450) FiO2 % 100.0 45.0 45.0 Labs and/or images reviewed: Labs reviewed by me, Image(s) reviewed by me Assessment/Plan Assessment/Plan 38-year-old male unknown medical history presents to the ER for altered level consciousness was brought in by EMS patient was combative agitated at home patient has a history of fentanyl and meth amphetamine abuse. Per ER staff nurse family gave Narcan x2 and was given Versed for agitation. The patient became to have respiratory distress and agonal breathing was intubated for airway protection. The patient is still in the ER intubated and chemically sedated. Assessment: -altered level consciousness -toxic encephalopathy -aspiration pneumonia -leukocytosis -drug abuse: Including fentanyl ,methamphetamines, alcohol, cannabis, cocaine and benzodiazepin. Plan: -repeat CBC BNP in a.m. daily -repeat chest x-ray in a.m. -changed antibiotic treatment clindamycin and Levaquin -chemically sedate patient for agitation -echo rule out endocarditis Plan discussed with: Other (Nurse) Date of Service: Apr 11, 2024 Billing Provider: KAMALJIT QUINTERO DEDICATED OWNER OPERATOR Common Visit Codes: [id number] CARE 30-74 MIN BIB [place] STUDENT DEDICATED OWNER OPERATOR Apr 11, 2024 12:13
[2024-04-11] MEDS: CLINDAMYCIN 300MG IV 50 ML IV SCH (14:31)
--- NOTE | 2024-04-11 15:15 | DVHSR ---
APPROVED REPORT EXAM: LIMITED Two-dimensional and M-mode echocardiogram with Doppler and color Doppler. Blood Pressure: 136/77 mmHg INDICATION rule out endocarditis RISK FACTORS Height: 5'9, Weight: 200 DIMENSIONS LVDd4.7 (3.8-5.7cm)LA (2D)3.6 (1.9-4.0cm)Aortic Root2.8 (2.0-3.7cm) LVDs3.2 (2.5-4.0cm)LA (MM) (1.9-4.0cm)Aortic Cusp Exc1.3 (1.5-2.0cm) EF (%) 55.0 (55-70%)Rt. Atrium3.7 (1.9-4.0cm)Asc. Aorta cm IVSd1.1 (0.7-1.1cm)RV (D) (1.8-2.4cm) PWd1.1 (0.7-1.1cm) Mitral Valve MitralMitral Stenosis E wave0.78m/sMV Mean GR.mmHg A wave0.86m/sMV Peak GR.mmHg E/A ratio0.92D MVAcm2 DECEL [id number] 1/2 Timems Aortic Valve Aortic ValveAortic Stenosis V11.32m/Rajeev Mean GR.6mmHg V21.52m/Rajeev Peak GR.9mmHg LVOT Diameter2.2 (1.8-2.4cm)Doppler AVA3.30cm2 LEFT VENTRICLE Normal left ventricular size and systolic function. Ejection fraction is estimated at 55-60%. No reg ional wall motion abnormalities. Left ventricular wall thickness is normal. Diastolic function is normal. RIGHT VENTRICLE Normal right ventricular size and systolic function. ATRIA Both atria are of normal size. MITRAL VALVE The mitral valve leaflets appear to be of normal structure and mobility. No significant mitral regur gitation. PULMONIC VALVE Not visualized. TRICUSPID VALVE Normal structure. No significant tricuspid regurgitation. PA pressure could not be adequately estim ated. AORTIC VALVE The aortic valve leaflets are not well visualized. No significant stenosis or regurgitation. GREAT VESSELS The aortic root and proximal ascending aorta are of normal size. PERICARDIAL EFFUSION No pericardial effusion. Other Information Quality : Technically LimitedRhythm : Technically limited study due to on vent.patient position. Conclusion Normal biventricular size and systolic function. No hemodynamically significant valvular disease. Visualization of the valves is limited. No pericardial effusion.
--- NOTE | 2024-04-11 19:23 | DVHINCON2 ---
Date of service: Apr 11, 2024 Referring Physician Alden Huizar NP Reason for Consultation Acute hypoxic respiratory failure requiring mechanical ventilator, aspiration pneumonia and pleural effusion. History of Present Illness A 38-year-old man with past medical history that includes polysubstance abuse (fentanyl and methamphetamine use) who was brought in to ED for evaluation of altered level of consciousness. Per EMS, patient was combative, agitated, and disoriented at home. Patient was given Narcan by family member as spoke maker were called. On the scene patient continued to be agitated and combative, was given Versed 5 mg followed by another dose of Narcan 0.5 injectable. Patient became altered with respiratory distress, agonal breathing, grunting, retractions 10 minutes prior to arrival to the ED, O2 saturation was 70s on room air and was subsequently intubated due to high probability of clinically significant life- threatening deterioration. Workup in ED showed WBC 13.1, platelets 358, sodium 136, potassium 4.0, BUN 12, creatinine 1.09, glucose 126, plasma/serum alcohol 7.3. Chest x-ray revealing small right pleural effusion and right basal consolidation which could reflect atelectasis or pneumonia. Patient was admitted for further care. Pulmonary consultation is requested for evaluation and management of acute hypoxic respiratory failure requiring mechanical ventilator, aspiration pneumonia and pleural effusion. Review of Systems: Unable to be obtained d/t intubated status Past Medical History: Polysubstance abuse Past Surgical History: Unknown Medications: Reviewed. Allergies: Penicillins. Family History: No family history of premature CAD. No family history of lung disorders. Social History: Nonsmoker. No alcohol use. Patient uses fentanyl and methamphetamine. Allergies: Coded Allergies: Penicillins (Verified Allergy, Severe, 09/08/18) Current Medications Current Medications Medications (Trade) Dose Ordered Sig/Jen Route PRN Reason Start Time Stop Time Status Last Admin Propofol 100 ml @ 2.73 mls/hr Q24H IV 04/11/24 00:30 04/11/24 16:49 Ceftriaxone Sodium 50 ml @ 100 mls/hr DAILY@09 IV 04/12/24 09:00 04/11/24 11:32 DC Azithromycin 250 ml @ 125 mls/hr DAILY IV 04/11/24 10:00 04/11/24 11:32 DC 04/11/24 10:54 Sodium Chloride 1,000 ml @ 60 mls/hr [id number] IV 04/11/24 02:30 04/11/24 10:54 Acetaminophen/ Hydrocodone Bitart ([place] 5/325MG Tab) 1 tab Q4HP PRN PO MODERATE PAIN (4-6 PAIN SCALE) 04/11/24 02:30 Ondansetron HCl (Zofran) 4 mg Q4HP PRN IV NAUSEA / VOMITING 04/11/24 02:30 Docusate Sodium (Colace Capsule) 100 mg BIDPRN PRN PO FOR CONSTIPATION 04/11/24 02:30 Acetaminophen (Tylenol Tablet) 650 mg Q6HP PRN PO PAIN SCALE 1-3 OR TEMP>100.4 04/11/24 02:30 Midazolam HCl 50 ml @ 1 mls/hr Q24H IV 04/11/24 03:30 04/11/24 17:16 Nitroglycerin (Ntrostat Sublingual) 0.4 mg Q5MINP PRN SL FOR CHEST PAIN 04/11/24 05:15 Morphine Sulfate 2 mg Q30M PRN IV FOR CHEST PAIN 04/11/24 05:15 Acetaminophen (Tylenol Solution Oral) 650 mg Q4HP PRN PO PAIN SCALE 1-3 OR TEMP>100.4 04/11/24 11:30 Clindamycin Phosphate 50 ml @ 50 mls/hr Q8HR IV 04/11/24 14:00 04/11/24 14:31 Levofloxacin/ Dextrose 100 ml @ 100 mls/hr DAILY IV 04/12/24 10:00 Vital Signs Vital Signs Date Time Temp Pulse Resp B/P (MAP) Pulse Ox O2 Delivery O2 Flow Rate FiO2 04/11/24 19:00 100.2 107 37 138/82 (100) 98 100.2 04/11/24 16:34 30 04/11/24 07:30 Mechanical Ventilator+ Physical Exam Gen.: Patient lying in bed in medical ICU. Sedated, intubated on mechanical ventilator. Head: Normocephalic, atraumatic. Eyes: PERRLA. Ears: Normal external anatomy. Throat: Endotracheal tube and orogastric tube in place. Neck: Supple, trachea midline. Chest: Transmitted breath sounds bilaterally. Decreased air entry bilaterally. No wheezing. Bibasilar crackles. Cardiovascular: Positive S1, positive S2. Regular rate and rhythm. Abdomen: Positive bowel sounds in all 4 quadrants. Soft, nontender, nondistended. : Bull in place. Normal external genitalia. Rectal: Deferred. Skin: Warm, dry. Intact. Extremities: 2+ radial pulses bilaterally. No lower extremity edema. Neuro: Sedated. Labs/Diagnostic Data Labs Test 04/11/24 07:55 04/11/24 07:35 04/11/24 05:13 04/11/24 01:51 Range/Units Urine Color Yellow Yellow Urine Clarity Turbid H Clear Urine pH 7.0 5.0-9.0 Urine Specific [place] 1.026 1.001-1.035 Urine Protein Trace H Negative Urine Ketones 2+ H Negative Urine Blood Negative Negative /uL Urine Nitrite Negative Negative Urine Bilirubin Negative Negative Urine Urobilinogen Normal Negative mg/dL Urine Leukocyte Esterase Negative Negative /uL Urine RBC 45 0 - 3 /hpf Urine WBC 2 0 - 3 /hpf Urine Squamous Epithelial Cells None seen <5 /hpf Urine Bacteria None seen None Seen /hpf Urine Glucose Normal Normal mg/dL Urine Opiates Screen Neg NEGATIVE Urine Fentanyl Screen Pos NEGATIVE Urine Barbiturates Screen Neg NEGATIVE Urine Phencyclidine Screen Neg NEGATIVE Urine Amphetamines Screen Pos NEGATIVE Urine Benzodiazepines Screen Pos NEGATIVE Urine Cocaine Screen Pos NEGATIVE Urine Cannabinoids Screen Pos NEGATIVE Blood Gas Specimen Type Arterial Blood Gas Sample Site Right radial Blood Gas Patient Temperature 37.0 Arterial Blood Date Drawn [id number] Arterial Blood pH 7.460 H 7.350-7.450 Arterial Blood Partial Pressure CO2 37.6 35.0-48.0 mmHg Arterial Blood Partial Pressure O2 147.2 H 83.0-108.0 mmHg Arterial Blood HCO3 26.1 21.0-28.0 mmol/L Arterial Blood Oxygen Saturation 99.3 H 94.0-98.0 % Arterial Blood Base Excess 2.4 -2.0-3.0 mmol/L Arterial Blood Oxyhemoglobin 97.8 94.0-98.0 % Arterial Blood Carboxyhemoglobin 1.2 0.5-1.5 % Arterial Blood Methemoglobin 0.3 0.0-1.5 % Chad Test Modified Blood Gas Total Hemoglobin 14.80 13.5-17.5 g/dL Blood Gas Set Respiration Rate 20.0 Blood Gas Modality Vent - ac Blood Gas Spontaneous Rate 28 FiO2 % 45.0 Blood Gas Tidal Volume 500.0 Blood Gas PEEP or CPAP 5.0 White Blood Count 13.4 H 4.4-10.8 10^3/uL Red Blood Count 5.12 4.5-5.90 10^6/uL Hemoglobin 14.0 13.5-17.5 g/dL Hematocrit 41.6 41.0-53.0 % Mean Corpuscular Volume 81.3 80.0-100.0 fL Mean Corpuscular Hemoglobin 27.4 L 28.0-32.0 pg Mean Corpuscular Hemoglobin Concent 33.7 32.0-36.0 g/dL Red Cell Distribution Width 14.1 11.8-14.3 % Platelet Count 342 140-450 10^3/uL Mean Platelet Volume 7.1 6.9-10.8 fL Neutrophils (%) (Auto) 79.4 37.0-80.0 % Lymphocytes (%) (Auto) 12.4 10.0-50.0 % Monocytes (%) (Auto) 7.4 0.0-12.0 % Eosinophils (%) (Auto) 0.6 0.0-7.0 % Basophils (%) (Auto) 0.2 0.0-2.0 % Neutrophils # (Auto) 10.6 H 1.6-8.6 10 ^3/uL Lymphocytes # (Auto) 1.7 0.4-5.4 10 ^3/uL Monocytes # (Auto) 1.0 0-1.3 10 ^3/uL Eosinophils # (Auto) 0.1 0-0.8 10 ^3/uL Basophils # (Auto) 0 0-0.2 10 ^3/uL Nucleated Red Blood Cells 0.0 % Sodium Level 137 136-145 mmol/L Potassium Level 3.9 3.5-5.1 mmol/L Chloride Level 102 98-107 mmol/L Carbon Dioxide Level 27 20-31 mmol/L Anion Gap 8 5-15 Blood Urea Nitrogen 10 9-23 mg/dL Creatinine 0.95 0.700-1.30 mg/dL Glomerular Filtration Rate Calc 106 >90 mL/min BUN/Creatinine Ratio 10.5 10.0-20.0 Serum Glucose 96 74-106 mg/dL Calcium Level 9.4 8.7-10.4 mg/dL Total Bilirubin 0.4 0.2-1.0 mg/dL Aspartate Amino Transferase (AST) 27 13-40 U/L Alanine Aminotransferase (ALT) 30 7-40 U/L Alkaline Phosphatase 84 46-116 U/L Total Protein 7.0 5.7-8.2 g/dL Albumin 3.8 3.2-4.8 g/dL Blood Gas Critical Value Read Back Yes Blood Gas Notified Whom Dr. chaves Blood Gas Notified Time [id number] Blood Gas Notified By Retrofit Installer carlton higinio Test 04/11/24 00:25 Range/Units Prothrombin Time 11.1 9.3-11.8 sec Prothrombin Time INR 1.05 0.9-1.15 Activated Partial Thromboplast Time 35.8 H 24.5-34.5 SEC Lactic Acid Level 1.1 0.4-2.0 mmol/L Magnesium Level 2.1 1.6-2.6 mg/dL Plasma/Serum Blood Alcohol 7.3 <10 mg/dL Microbiology Date/Time Source Procedure Growth Status 04/11/24 00:41 Blood Blood Culture - Preliminary Resulted Assessment Impression: Acute hypoxic respiratory failure On mechanical ventilator Acute metabolic/toxic encephalopathy Polysubstance abuse Aspiration pneumonia, likely gram negative Pleural effusion, right Atelectasis Obesity BMI 30 Plan: s/p intubation on mechanical ventilator. CXR image and report reviewed. Devices in place. Small right pleural effusion, atelectasis. No pneumothorax. On AC mode; RR 20, VT 500, PEEP 5, FiO2 45%. Titrate FIO2 to keep O2 saturation above 90%. VAP bundle. Daily ABG and CXR while intubated Sedate for ventilator synchrony- on Fentanyl, Versed, Propofol Obtain consent for bronchoscopy with bronchoalveolar lavage, possible brushings, possible biopsy Continue antibiotics. F/u cultures. Start pressors if necessary to maintain a mean arterial blood pressure greater than 65 mmHg. Monitor renal function Monitor electrolytes. Supplement as necessary. Monitor ins and outs. Maintain euvolemia. GI prophylaxis. DVT prophylaxis. Updated family at bedside. Prognosis: Poor given patient's multiple co-morbidities. Condition: Critical Rest of plan per hospitalist and other consultants. A total of 36 minutes of critical care time was spent reviewing the patient record, examining the patient, making a diagnostic and therapeutic plan, discussing this plan with the medical personnel, following up on diagnostic studies and following the patient for clinical stability excluding any and all procedures. At least 50% of this time was spent in direct, [id number] contact. Thank you Alden Huizar NP, for allowing me to participate in this patient's care. Further recommendations will depend on the patient's clinical course. Please do not hesitate to contact me if you have any questions or concerns. This medical document was created using an electronic medical record system with [employer] dictation system. Although these documentations are being carefully reviewed, there may still be some phonetic and typographical changes. The errors are purely typographical, due to imperfection on the software program, and do not reflect any compromise in the patient's medical care. Plan discussed with: Spouse (Mother), Other (JONA Thomas /YUNIEL Huizar/) BENOIT JACKSON MD Apr 11, 2024 19:23
[2024-04-11] MEDS: fentaNYL Drip 2500mCg/250mlNS 250 ML IV SCH (21:45)
[2024-04-12] VITALS (88 sets, daily range): BP systolic 129–178; BP diastolic 75–99; PULSE 87–112; RESP 13–54; TEMP 98.2–99.9; O2SAT 95–100
[2024-04-12 03:50] LABS: Basophils # (auto) 0 10 ^3/uL (0-0.2); Basophils % (auto) 0.3 % (0.0-2.0); Eosinophils # (auto) 0 10 ^3/uL (0-0.8); Hematocrit 41.1 % (41.0-53.0); Hemoglobin 13.7 g/dL (13.5-17.5); Lymphocytes # (auto) 1.3 10 ^3/uL (0.4-5.4); Lymphocytes % (auto) 12.3 % (10.0-50.0); Mean Corpuscular Hemoglobin 27.4 pg (28.0-32.0); Mean Corpuscular Hgb Conc. 33.4 g/dL (32.0-36.0); Monocytes # (auto) 0.7 10 ^3/uL (0-1.3); Monocytes % (auto) 6.3 % (0.0-12.0); Neutrophils # (auto) 8.5 10 ^3/uL (1.6-8.6); Neutrophils % (auto) 81.1 % (37.0-80.0); Nucleated Red Blood Cells % 0.1 %; Platelet Count (auto) 331 10^3/uL (140-450); Red Blood Cells 5.02 10^6/uL (4.5-5.90); Red Cell Distribution Width 14.5 % (11.8-14.3); White Blood Cell 10.5 10^3/uL (4.4-10.8)
[2024-04-12 04:04] LABS: Albumin 3.6 g/dL (3.2-4.8); Alkaline Phosphatase 80 U/L (46-116); Anion Gap 7 (5-15); Aspartate Aminotransferase 23 U/L (13-40); BUN/Creatinine Ratio 14.6 (10.0-20.0); Blood Urea Nitrogen 12 mg/dL (9-23); Calcium 8.9 mg/dL (8.7-10.4); Carbon Dioxide 24 mmol/L (20-31); Chloride 105 mmol/L (98-107); Glucose 94 mg/dL (74-106); Potassium 3.9 mmol/L (3.5-5.1); Sodium 136 mmol/L (136-145)
[2024-04-12 04:05] LABS: Bilirubin, Total 0.4 mg/dL (0.2-1.0); Total Protein 6.5 g/dL (5.7-8.2)
[2024-04-12 04:55] LABS: Alanine Aminotransferase 23 U/L (7-40)
--- NOTE | 2024-04-12 05:17 | DVH ---
CHEST RADIOGRAPH Indication: INTUBATED. ASPIRATION PNEUMONIA Technique: Single frontal view of the chest was obtained COMPARISON: XY CHEST PORTABLE on DOS: 04/11/24 FINDINGS: Lines and Tubes: Endotracheal tube and enteric catheter in satisfactory position. Lungs: Congestion Pleura: No effusion. No pneumothorax. Cardiomediastinal contours: Unremarkable Bones: Unremarkable IMPRESSION: Lines and tubes in satisfactory position. No significant interval change.
[2024-04-12] MEDS: hydrALAZINE HCL 20 MG/ML VL ONE (06:41)
[2024-04-12] MEDS: hydrALAZINE HCL 20 MG/ML VL IV ONE (06:42)
[2024-04-12 07:34] LABS: Base Excess -1.2 mmol/L (-2.0-3.0)
--- NOTE | 2024-04-12 08:20 | DVHPN2 ---
Subjective CHEMICALLY SEDATED Reviewed: Care Plan, H&P, Labs, Medications, Previous Orders, Radiology, Other Changes from previous H/P or p: No Changes General: Per HPI Eyes: No Pain, No Vision change, No Conjunctivae inflammation, No Eyelid inflammation, No Other, No Redness ENT: No Ear pain, No Ear discharge, No Nose pain, No Nose discharge, No Nose congestion, No Mouth pain, No Mouth swelling, No Throat pain, No Throat swelling, No Other Cardiovascular: No Chest Pain, No Palpitations, No Orthopnea, No Paroxysmal Noc. Dyspnea, No Edema, No Lt Headedness, No Other Respiratory: No Cough, No Dry; Shortness of breath; No SOB with excertion, No Wheezing, No Hemoptysis, No Pleuritic Pain, No Sputum, No Other Gastrointestinal: No Nausea, No Vomiting, No Abdominal Pain, No Diarrhea, No Constipation, No Melena, No Hematochezia, No Other Genitourinary: No Dysuria, No Frequency, No Incontinence, No Hematuria, No Retention, No Other Musculoskeletal: No other, No neck pain, No shoulder pain, No arm pain, No back pain, No hand pain, No leg pain, No foot pain Skin: No Rash, No Lesions, No Jaundice, No Bruising, No Other Objective Vitals Vital Signs Date Time Temp Pulse Resp B/P (MAP) Pulse Ox O2 Delivery O2 Flow Rate FiO2 04/12/24 07:49 106 30 159/88 (111) 98 30 04/12/24 06:45 98.4 98.4 04/12/24 05:31 Mechanical Ventilator+ 04/11/24 20:30 0 Intake/Output Intake and Output 04/12/24 07:00 Intake Total 2498.5 ml Output Total 1100 ml Balance 1398.5 ml Intake IV Total 2498.5 ml Output Urine Total 1100 ml Stool Total 0 ml # Bowel Movements 1 General Appearance: Other (Intubated and sedated) HEENT: Atraumatic, PERRLA Lungs: Clear to auscultation Cardiovascular: Regular rate, Normal S1, Normal S2, No murmurs, Other Abdomen: Normal bowel sounds, Soft Neuro: Other (Constipation) Skin: Dry, Intact Psych/Mental Status: Other (Intubated sedated) Medications Current Medications Medications Dose Ordered Sig/Jen Route Start Time Stop Time Status Last Admin Dose Admin Propofol 100 ml @ 2.73 mls/hr Q24H IV 04/11/24 00:30 04/12/24 05:02 27.3 MLS/HR Sodium Chloride 1,000 ml @ 60 mls/hr [id number] IV 04/11/24 02:30 04/11/24 10:54 60 MLS/HR Acetaminophen/ Hydrocodone Bitart 1 tab Q4HP PRN PO 04/11/24 02:30 Ondansetron HCl 4 mg Q4HP PRN IV 04/11/24 02:30 Docusate Sodium 100 mg BIDPRN PRN PO 04/11/24 02:30 Acetaminophen 650 mg Q6HP PRN PO 04/11/24 02:30 Midazolam HCl 50 ml @ 1 mls/hr Q24H IV 04/11/24 03:30 04/12/24 04:14 15 MLS/HR Nitroglycerin 0.4 mg Q5MINP PRN SL 04/11/24 05:15 Morphine Sulfate 2 mg Q30M PRN IV 04/11/24 05:15 Acetaminophen 650 mg Q4HP PRN PO 04/11/24 11:30 Clindamycin Phosphate 50 ml @ 50 mls/hr Q8HR IV 04/11/24 14:00 04/12/24 05:04 50 MLS/HR Levofloxacin/ Dextrose 100 ml @ 100 mls/hr DAILY IV 04/12/24 10:00 Fentanyl Citrate 250 ml @ 2.5 mls/hr Q24H IV 04/11/24 21:00 04/11/24 21:45 2.5 MLS/HR Hydralazine HCl 10 mg Q6HP PRN IV 04/12/24 07:30 UNV Dexmedetomidine HCl 400 mcg/ Dextrose 100 ml @ 4.55 mls/hr [id number] IV 04/12/24 07:30 UNV Laboratory Results Laboratory Tests 04/12/24 02:58 Chemistry Test 04/12/24 02:58 Albumin 3.6 g/dL (3.2-4.8) Calcium Level 8.9 mg/dL (8.7-10.4) Total Protein 6.5 g/dL (5.7-8.2) LFT Test 04/12/24 02:58 Alanine Aminotransferase (ALT) 23 U/L (7-40) Alkaline Phosphatase 80 U/L (46-116) Aspartate Amino Transferase (AST) 23 U/L (13-40) Total Bilirubin 0.4 mg/dL (0.2-1.0) Urinalysis Test 04/11/24 07:55 Urine Color Yellow (Yellow) Urine Clarity Turbid (Clear) H Urine pH 7.0 (5.0-9.0) Urine Specific [place] 1.026 (1.001-1.035) Urine Protein Trace (Negative) H Urine Ketones 2+ (Negative) H Urine Blood Negative /uL (Negative) Urine Nitrite Negative (Negative) Urine Bilirubin Negative (Negative) Urine Urobilinogen Normal mg/dL (Negative) Urine Leukocyte Esterase Negative /uL (Negative) Urine RBC 45 /hpf (0 - 3) Urine WBC 2 /hpf (0 - 3) Urine Squamous Epithelial Cells None seen /hpf (<5) Urine Bacteria None seen /hpf (None Seen) Urine Glucose Normal mg/dL (Normal) Blood Gas Results Test 04/12/24 07:20 Arterial Blood pH 7.443 (7.350-7.450) FiO2 % 30.0 Microbiology Microbiology Date/Time Source Procedure Growth Status 04/11/24 00:41 Blood Blood Culture - Preliminary Resulted Labs and/or images reviewed: Labs reviewed by me, Image(s) reviewed by me Assessment/Plan Assessment/Plan Impression: -sepsis -aspiration pneumonia -Polysubstance abuse -Toxic metabolic encephalopathy -acute hypoxic and hypercarbic respiratory failure from polysubstance abuse Plan: -pulmonology consultation: Plans for bronchoscopy this a.m. -CPAP trial after bronchoscopy -continue current sedation, wean with spontaneous breathing trial. Use Precedex as needed for agitation/anxiety -continue empiric antibiotic therapy with Levaquin and clindamycin. WBC count normal. Afebrile -PUD/DVT prophylaxis -repeat labs and chest x-ray in a.m. Critical care time spent with patient discussing and formulating plan of care: 40 minutes. This does not include time spent performing procedures. This medical document was created using an electronic medical record system with [employer] system. Although this document has been carefully reviewed, there may still be some phonetic and typographical errors. These areas are purely typographical due to imperfections of the software programs, and do not reflect any compromise in the patient's medical care. Plan discussed with: Patient, Other (RN) My Orders Orders - SALBINO,MARI STONE FABRICATOR Procedure Category Date Status Time Clindamycin 300mg Iv PHA 04/11/24 In Process (Cleocin Iv) 14:00 Levofloxacin 500mg PHA 04/12/24 In Process (Levaquin 500mg/ 100m 10:00 Chest Xray 1 View XY 04/12/24 Resulted 04:00 Echo 2d Mode Cardiac US 04/11/24 Resulted DOP 12:14 Cpap/Sed Vacation Med ORDERS 04/12/24 Transmitted Weaning 07:15 Hydralazine Injection PHA 04/12/24 Logged (Apresoline Inject 07:30 D5w 5% (Dextrose 5%) PHA 04/12/24 Logged W/Dexmedetomidine 07:30 Date of Service: Apr 12, 2024 Billing Provider: KAMALJIT QUINTERO NP Common Visit Codes: 63849-[id number] CARE 30-74 MIN KAMALJIT QUINTERO NP Apr 12, 2024 08:20
[2024-04-12] MEDS ORDERED: cefTRIAXone 1GM/50ML D5W 50 ML IV SCH (09:00)
[2024-04-12] MEDS: LABETALOL HCL 20 MG/4 ML VL IV PRN (09:47)
[2024-04-12] MEDS ORDERED: levoFLOXacin 500MG 100 ML IV SCH (10:00)
[2024-04-12] MEDS: levoFLOXacin 250MG 50 ML IV SCH (11:21)
--- NOTE | 2024-04-12 11:27 | DVHNC2 ---
Procedure - Bronchoscopy procedure note: Indications: Increased Et tube secretions, Possible mucous plugging. Medicines: See [employer] notes. Complications: None Procedure: Patient medications and allergies reviewed. The risks and benefits of the procedure and the sedation options and risk were discussed with the patient's healthcare proxy. All questions were answered and informed consent was obtained. Patient identification and proposed procedure were verified prior to the procedure by the physician, and a nurse, and the respiratory therapist in ED room. The heart rate, respiratory rate, oxygen saturations, blood pressure, adequacy of pulmonary ventilation, and response to care were monitored throughout the procedure. The physical status of the patient was reassessed after the procedure. After obtaining informed consent, the bronchoscope was introduced through the endotracheal tube and advanced into the trachea bronchial tree of both lungs. The procedure was accomplished without difficulty. The patient tolerated the procedure well. Findings: The trachea is in normal caliber. The tiffany is sharp. The tracheobronchial tree of the right lung was examined to at least the first subsegmental level. The bronchial mucosa and anatomy in the right lung are normal. There are no endobronchial lesions. There was copious whitish secretions from right main stem bronchus onward throughout R6-R10. Right middle lobe (RML) Bronchoalveolar lavage (BAL) obtained. RML BAL sent for gram stain and culture. The left upper lobe, lingula, and left lower lobe were examined to at least the first subsegmental level. Bronchial mucosa and anatomy in the left upper lobe and lingula are normal. There were no endobronchial lesions. There was copious whitish secretions from left main stem bronchus onward throughout L1-L3. Mucous plugging removed from L1-L3. There was no active bleeding at the completion of the procedure. Estimated blood loss: Less than 5 mL. Impression: Left upper and right lower lobe atelectasis due to mucous plugging Mucous plugging from L1-L3 and R6-R10 RML BAL performed Recommendation: Follow-up RML BAL results. Procedure codes: 28887, bronchoscopy, rigid and flexible, including fluoroscopic guidance, one performed; with bronchial endobronchial broncho-alveolar lavage, single or multiple site BENOIT JACKSON MD Apr 12, 2024 11:27
[2024-04-12] MEDS: FUROSEMIDE 40 MG/4 ML VIAL IV ONE (15:39)
[2024-04-12 15:46] LABS: Base Excess -1.7 mmol/L (-2.0-3.0)
[2024-04-12] MEDS: FUROSEMIDE 40 MG/4 ML VIAL ONE (15:47)
--- NOTE | 2024-04-12 19:18 | DVHPN2 ---
Progress Note - Dictate Date Seen: Apr 12, 2024 Medical Necessity Reason Pt with a Central, PICC or Fol: Yes The following are medically ne: Galaviz Catheter Reason for galaviz catheter: Strict I&O Subjective Patient seen and examined at bedside. Sedated, intubated on mechanical ventilator. Overnight events reviewed. vital signs Vital Sign Date Time Temp Pulse Resp B/P (MAP) Pulse Ox O2 Delivery O2 Flow Rate FiO2 04/12/24 18:00 104 04/12/24 18:00 20 98 Cool Aerosol 10 N/A 04/12/24 17:45 140/84 (102) 04/12/24 15:45 99.9 99.9 Total Intake and Output 04/11/24 04/11/24 04/12/24 15:00 23:00 07:00 Intake Total 713.8 ml 796.3 ml 988.4 ml Output Total 800 ml 300 ml Balance 713.8 ml -3.7 ml 688.4 ml medications Current Medications Medications Dose Ordered Sig/Jen Route Start Time Stop Time Status Last Admin Dose Admin Propofol 100 ml @ 2.73 mls/hr Q24H IV 04/11/24 00:30 04/12/24 05:02 27.3 MLS/HR Sodium Chloride 1,000 ml @ 60 mls/hr [id number] IV 04/11/24 02:30 04/12/24 13:02 60 MLS/HR Acetaminophen/ Hydrocodone Bitart 1 tab Q4HP PRN PO 04/11/24 02:30 Ondansetron HCl 4 mg Q4HP PRN IV 04/11/24 02:30 Docusate Sodium 100 mg BIDPRN PRN PO 04/11/24 02:30 Acetaminophen 650 mg Q6HP PRN PO 04/11/24 02:30 Midazolam HCl 50 ml @ 1 mls/hr Q24H IV 04/11/24 03:30 04/12/24 11:22 15 MLS/HR Nitroglycerin 0.4 mg Q5MINP PRN SL 04/11/24 05:15 Morphine Sulfate 2 mg Q30M PRN IV 04/11/24 05:15 Acetaminophen 650 mg Q4HP PRN PO 04/11/24 11:30 Clindamycin Phosphate 50 ml @ 50 mls/hr Q8HR IV 04/11/24 14:00 04/12/24 14:00 50 MLS/HR Fentanyl Citrate 250 ml @ 2.5 mls/hr Q24H IV 04/11/24 21:00 04/12/24 11:20 2.5 MLS/HR Hydralazine HCl 10 mg Q6HP PRN IV 04/12/24 07:30 Dexmedetomidine HCl 400 mcg/ Dextrose 100 ml @ 4.55 mls/hr [id number] IV 04/12/24 07:30 04/12/24 11:28 4.55 MLS/HR Labetalol HCl 10 mg Q2HPRN PRN IV 04/12/24 09:45 04/12/24 14:19 10 MG Levofloxacin 50 ml @ 50 mls/hr DAILY@1000,1100 IV 04/12/24 10:00 04/12/24 11:24 50 MLS/HR objective Gen.: Patient lying in bed in medical ICU. Sedated, intubated on mechanical ventilator. Head: Normocephalic, atraumatic. Eyes: PERRLA. Ears: Normal external anatomy. Throat: Endotracheal tube and orogastric tube in place. Neck: Supple, trachea midline. Chest: Transmitted breath sounds bilaterally. Decreased air entry bilaterally. No wheezing. Bibasilar crackles. Cardiovascular: Positive S1, positive S2. Regular rate and rhythm. Abdomen: Positive bowel sounds in all 4 quadrants. Soft, nontender, nondistended. : Galaviz in place. Normal external genitalia. Rectal: Deferred. Skin: Warm, dry. Intact. Extremities: 2+ radial pulses bilaterally. No lower extremity edema. Neuro: Sedated. laboratory and microbiology Laboratory Tests 04/12/24 02:58 Test 04/12/24 02:58 Range/Units Serum Glucose 94 74-106 mg/dL Assessment/Plan Impression: Acute hypoxic respiratory failure On mechanical ventilator Acute metabolic/toxic encephalopathy Polysubstance abuse Aspiration pneumonia, likely gram negative Pleural effusion, right Atelectasis Obesity BMI 30 Events: Remains on vent support On AC mode; RR 20, VT 500, PEEP 5, FiO2 35%. Sedated on Propofol, Fentanyl, Versed Taper sedation as tolerated CPAP with PS 8, PEEP of 5. ABG reviewed, notable for alkalemia Chest x-ray demonstrates pulmonary congestion. No effusion or pneumothorax. Devices in place. S/p therapeutic bronchoscopy w/ RML BAL - Mucous plugging from L1-L3 and R6-R10 See separate procedure note for details. Continue antibiotics Monitor for withdrawal as tapering sedation. Labs and imaging reviewed. Rest of plan as noted below. Plan: s/p intubation on mechanical ventilator. On AC mode; RR 20, VT 500, PEEP 5, FiO2 35%. Titrate FIO2 to keep O2 saturation above 90%. VAP bundle. Daily ABG and CXR while intubated Sedate for ventilator synchrony- on Fentanyl, Versed, Propofol Continue antibiotics. F/u cultures. Start pressors if necessary to maintain a mean arterial blood pressure greater than 65 mmHg. Monitor renal function Monitor electrolytes. Supplement as necessary. Monitor ins and outs. Maintain euvolemia. GI prophylaxis. DVT prophylaxis. Prognosis: Poor given patient's multiple co-morbidities. Condition: Critical Rest of plan per hospitalist and other consultants. A total of 35 minutes of critical care time was spent reviewing the patient record, examining the patient, making a diagnostic and therapeutic plan, discussing this plan with the medical personnel, following up on diagnostic studies and following the patient for clinical stability excluding any and all procedures. At least 50% of this time was spent in direct, [id number] contact. Thank you Alden Huizar NP, for allowing me to participate in this patient's care. Further recommendations will depend on the patient's clinical course. Please do not hesitate to contact me if you have any questions or concerns. This medical document was created using an electronic medical record system with [employer] dictation system. Although these documentations are being carefully reviewed, there may still be some phonetic and typographical changes. The errors are purely typographical, due to imperfection on the software program, and do not reflect any compromise in the patient's medical care. Plan discussed with: Other (JONA Stokes) Critical Care Time(min): 35 BENOIT JACKSON MD Apr 12, 2024 19:18
[2024-04-13] MEDS: LORazepam 2MG/ML-1ML VIAL IV ONE (03:11)
--- NOTE | 2024-04-13 05:31 | DVH ---
EXAM: XY CHEST PORTABLE Indication: Pain Technique: Single frontal view of the chest was obtained Comparison: XY CHEST XRAY 1 VIEW on DOS: 04/12/24, XY CHEST PORTABLE on DOS: 04/11/24 FINDINGS: Lines and Tubes: None Lungs: No focal consolidation. Pleura: No effusion. No pneumothorax. Cardiomediastinal contours: Unremarkable Bones: No acute osseous abnormality. IMPRESSION: No acute cardiopulmonary disease.
[2024-04-13 06:19] LABS: Anion Gap 8 (5-15); Carbon Dioxide 25 mmol/L (20-31); Chloride 107 mmol/L (98-107); Potassium 3.6 mmol/L (3.5-5.1); Sodium 140 mmol/L (136-145)
[2024-04-13 06:25] LABS: BUN/Creatinine Ratio 14.4 (10.0-20.0); Blood Urea Nitrogen 13 mg/dL (9-23); Glucose 103 mg/dL (74-106)
[2024-04-13] MEDS ORDERED: VANCOMYCIN PER PHARMACY 0 MG IV SCH (07:15)
[2024-04-13] MEDS: VANCOMYCIN 1GM/250ML KIT 250 ML IV SCH ×2 (07:30→21:19)
--- NOTE | 2024-04-13 07:52 | DVHPN2 ---
Subjective Denies any symptoms at this time Reviewed: Care Plan, H&P, Labs, Medications, Previous Orders, Radiology, Other Changes from previous H/P or p: Changes General: Per HPI Eyes: No Pain, No Vision change, No Conjunctivae inflammation, No Eyelid inflammation, No Other, No Redness ENT: No Ear pain, No Ear discharge, No Nose pain, No Nose discharge, No Nose congestion, No Mouth pain, No Mouth swelling, No Throat pain, No Throat swelling, No Other Cardiovascular: No Chest Pain, No Palpitations, No Orthopnea, No Paroxysmal Noc. Dyspnea, No Edema, No Lt Headedness, No Other Respiratory: No Cough, No Dry; Shortness of breath; No SOB with excertion, No Wheezing, No Hemoptysis, No Pleuritic Pain, No Sputum, No Other Gastrointestinal: No Nausea, No Vomiting, No Abdominal Pain, No Diarrhea, No Constipation, No Melena, No Hematochezia, No Other Genitourinary: No Dysuria, No Frequency, No Incontinence, No Hematuria, No Retention, No Other Musculoskeletal: No other, No neck pain, No shoulder pain, No arm pain, No back pain, No hand pain, No leg pain, No foot pain Skin: No Rash, No Lesions, No Jaundice, No Bruising, No Other Objective Vitals Vital Signs Date Time Temp Pulse Resp B/P (MAP) Pulse Ox O2 Delivery O2 Flow Rate FiO2 04/13/24 04:00 99 04/13/24 02:00 33 143/92 (109) 97 04/12/24 23:00 Room Air* 0 21 04/12/24 19:30 98.7 98.7 Intake/Output Intake and Output 04/13/24 07:00 Intake Total 1173.000 ml Output Total 3000 ml Balance -1827.000 ml Intake IV Total 1173.000 ml Output Urine Total 3000 ml # Bowel Movements 2 General Appearance: Alert, Oriented X3, No acute distress HEENT: Atraumatic, PERRLA Lungs: Clear to auscultation Cardiovascular: Regular rate, Normal S1, Normal S2, No murmurs, Other Abdomen: Normal bowel sounds, Soft Musculoskeletal: Normal sensory function, Normal motor function Neuro: Other (Constipation) Skin: Dry, Intact Psych/Mental Status: Mental status NL, Mood NL Medications Current Medications Medications Dose Ordered Sig/Jen Route Start Time Stop Time Status Last Admin Dose Admin Sodium Chloride 1,000 ml @ 60 mls/hr [id number] IV 04/11/24 02:30 04/13/24 04:32 60 MLS/HR Acetaminophen/ Hydrocodone Bitart 1 tab Q4HP PRN PO 04/11/24 02:30 Ondansetron HCl 4 mg Q4HP PRN IV 04/11/24 02:30 Docusate Sodium 100 mg BIDPRN PRN PO 04/11/24 02:30 Acetaminophen 650 mg Q6HP PRN PO 04/11/24 02:30 Nitroglycerin 0.4 mg Q5MINP PRN SL 04/11/24 05:15 Morphine Sulfate 2 mg Q30M PRN IV 04/11/24 05:15 Acetaminophen 650 mg Q4HP PRN PO 04/11/24 11:30 Hydralazine HCl 10 mg Q6HP PRN IV 04/12/24 07:30 Labetalol HCl 10 mg Q2HPRN PRN IV 04/12/24 09:45 04/12/24 21:00 10 MG Lorazepam 1 mg Q4HPRN PRN IV 04/13/24 03:02 Vancomycin HCl 0 ml @ 0 mls/hr UD IV 04/13/24 07:15 UNV Vancomycin HCl 250 ml @ 250 mls/hr Q1H IV 04/13/24 07:30 04/13/24 09:29 Laboratory Results Laboratory Tests 04/12/24 02:58 04/13/24 05:44 Chemistry Test 04/13/24 05:44 Calcium Level 9.0 mg/dL (8.7-10.4) Urinalysis Test 04/11/24 07:55 Urine Color Yellow (Yellow) Urine Clarity Turbid (Clear) H Urine pH 7.0 (5.0-9.0) Urine Specific [place] 1.026 (1.001-1.035) Urine Protein Trace (Negative) H Urine Ketones 2+ (Negative) H Urine Blood Negative /uL (Negative) Urine Nitrite Negative (Negative) Urine Bilirubin Negative (Negative) Urine Urobilinogen Normal mg/dL (Negative) Urine Leukocyte Esterase Negative /uL (Negative) Urine RBC 45 /hpf (0 - 3) Urine WBC 2 /hpf (0 - 3) Urine Squamous Epithelial Cells None seen /hpf (<5) Urine Bacteria None seen /hpf (None Seen) Urine Glucose Normal mg/dL (Normal) Blood Gas Results Test 04/12/24 15:30 Arterial Blood pH 7.475 (7.350-7.450) FiO2 % 30.0 Microbiology Microbiology Date/Time Source Procedure Growth Status 04/11/24 07:55 Urine - [place] Urine Culture - Preliminary Resulted 04/11/24 00:41 Blood Blood Culture - Preliminary Staphylococcus aureus Resulted 04/11/24 00:25 Sputum Gram Stain - Final Resulted 04/11/24 00:25 Sputum Respiratory Culture - Preliminary Resulted Labs and/or images reviewed: Labs reviewed by me, Image(s) reviewed by me Assessment/Plan Assessment/Plan Impression: -sepsis -aspiration pneumonia -Polysubstance abuse -Toxic metabolic encephalopathy -acute hypoxic and hypercarbic respiratory failure from polysubstance abuse Plan: Events: Patient is status post bronchoscopy yesterday, extubated yesterday afternoon. Currently on room air. Blood culture now positive for Staphylococcus aureus. Echocardiogram at this time negative for any signs of endocarditis -Transfer to Medical/Surgical unit -Consider Cardiology consultation for vince if found to have history of IV drug use -Change antibiotic therapy to vancomycin -PUD/DVT prophylaxis -Repeat labs in a.m.. Repeat blood culture today. Total time spent with patient discussing and formulating plan of care: 35 minutes. This medical document was created using an electronic medical record system with [employer] dictation system. Although this document has been carefully reviewed, there may still be some phonetic and typographical errors. These areas are purely typographical due to imperfections of the software programs, and do not reflect any compromise in the patient's medical care. Plan discussed with: Patient, Other (RN) My Orders Orders - KAMALJIT QUINTERO [employer] JUDGE Procedure Category Date Status Time Chest Portable XY 04/13/24 Resulted 04:00 Abg W/ Co-Ox RT 04/13/24 Logged 04:00 Labetalol Hcl PHA 04/12/24 In Process (Labetalol Hcl) 09:45 Oxygen Via Cool Mist RT 04/12/24 Transmitted Mask 15:55 Regular Diet DIET 04/13/24 Transmitted Breakfast Vancomycin Per PHA 04/13/24 Logged Pharmacy 07:15 Blood Culture EDILIA 04/13/24 Logged 07:05 Vancomycin 1gm/250ml PHA 04/13/24 In Process Kit 07:30 Basic Metabolic Panel LAB 04/14/24 Verified 04:00 Complete Blood Count LAB 04/14/24 Verified 04:00 Date of Service: Apr 13, 2024 Billing Provider: KAMALJIT QUINTERO NP Common Visit Codes: [id number] INP/OBS CARE(HIGH) KAMALJIT QUINTERO NP Apr 13, 2024 07:52
--- NOTE | 2024-04-13 10:36 | MEDREC ---
[facility] Intervention Section I [facility] Intervention: Review courses of therapy (PLEASE CONSIDER ADDING A GRAM NEGATIVE COVERAGE ACCORDING TO THE BRONCHIAL WASHING CULTURE PRELIMINARY RESULTS) NAYLA YANEZ PHARMACIST Apr 13, 2024 10:36
--- NOTE | 2024-04-13 20:40 | DVHPN2 ---
Progress Note - Dictate Date Seen: Apr 13, 2024 Medical Necessity Reason Pt with a Central, PICC or Fol: Yes The following are medically ne: Galaviz Catheter Reason for galaviz catheter: Strict I&O Subjective Patient seen and examined at bedside. S/p extubation, currently on room air. Overnight events reviewed. vital signs Vital Sign Date Time Temp Pulse Resp B/P (MAP) Pulse Ox O2 Delivery O2 Flow Rate FiO2 04/13/24 19:30 95 18 156/84 (108) 99 04/13/24 16:30 98.3 98.3 04/12/24 23:00 Room Air* 0 21 Total Intake and Output 04/12/24 04/12/24 04/13/24 14:59 22:59 06:59 Intake Total 1003.925 ml 241.375 ml 50 ml Output Total 3000 ml Balance 1003.925 ml -2758.625 ml 50 ml medications Current Medications Medications Dose Ordered Sig/Jen Route Start Time Stop Time Status Last Admin Dose Admin Sodium Chloride 1,000 ml @ 60 mls/hr [id number] IV 04/11/24 02:30 04/13/24 04:32 60 MLS/HR Acetaminophen/ Hydrocodone Bitart 1 tab Q4HP PRN PO 04/11/24 02:30 Ondansetron HCl 4 mg Q4HP PRN IV 04/11/24 02:30 Docusate Sodium 100 mg BIDPRN PRN PO 04/11/24 02:30 Nitroglycerin 0.4 mg Q5MINP PRN SL 04/11/24 05:15 Morphine Sulfate 2 mg Q30M PRN IV 04/11/24 05:15 Acetaminophen 650 mg Q4HP PRN PO 04/11/24 11:30 Hydralazine HCl 10 mg Q6HP PRN IV 04/12/24 07:30 Labetalol HCl 10 mg Q2HPRN PRN IV 04/12/24 09:45 04/12/24 21:00 10 MG Lorazepam 1 mg Q4HPRN PRN IV 04/13/24 03:02 Vancomycin HCl 0 ml @ 0 mls/hr UD IV 04/13/24 07:15 Vancomycin HCl 250 ml @ 250 mls/hr Q12H IV 04/13/24 21:00 objective Gen.: Patient lying in bed in no apparent distress. Breathing on room air. Head: Normocephalic, atraumatic. Eyes: EOMI/PERRLA. Ears: Normal hearing. Normal anatomy. Neck/trachea: Trachea midline, supple. Nose: Normal external anatomy. Mouth: Moist mucous membranes. Chest: Decreased air entry bilaterally. No wheezing or rhonchi. Cardiovascular: Positive S1, positive S2. Regular rate and rhythm. Abdomen: Positive bowel sounds in all 4 quadrants. Soft, non-tender, non- distended. : Deferred. Rectal: Deferred. Skin: Warm, dry. Intact. Extremities: 2+ radial pulses bilaterally. No lower extremity edema. Neuro: Awake, alert, oriented x3. No gross motor or sensory deficits. Cranial nerves II through XII intact. Gait not assessed. laboratory and microbiology Laboratory Tests 04/13/24 05:44 04/12/24 02:58 Test 04/13/24 05:44 Range/Units Serum Glucose 103 74-106 mg/dL Assessment/Plan Impression: Acute hypoxic respiratory failure On mechanical ventilator Acute metabolic/toxic encephalopathy Polysubstance abuse Aspiration pneumonia, likely gram negative Pleural effusion, right Atelectasis Obesity BMI 30 Events: S/p extubation, currently on room air No respiratory distress. Chest x-ray reveals no acute abnormalities. Continue antibiotics Note, pt is refusing antibiotics and medical treatment. He is alert and oriented x3. Counseled on risks - pt voiced understanding Incentive spirometry Pain control Avoid oversedation 04/12/24 - S/p therapeutic bronchoscopy w/ RML BAL - Mucous plugging from L1-L3 and R6-R10 See separate procedure note for details. Labs and imaging reviewed. Rest of plan as noted below. Plan: s/p extubation on 04/12/24 On room air Supplemental O2 PRN Off sedation Continue antibiotics. F/u cultures. Start pressors if necessary to maintain a mean arterial blood pressure greater than 65 mmHg. Monitor renal function Monitor electrolytes. Supplement as necessary. Monitor ins and outs. Maintain euvolemia. GI prophylaxis. DVT prophylaxis. Prognosis: Poor given patient's multiple co-morbidities. Rest of plan per hospitalist and other consultants. Thank you Alden Huizar NP, for allowing me to participate in this patient's care. Further recommendations will depend on the patient's clinical course. Please do not hesitate to contact me if you have any questions or concerns. This medical document was created using an electronic medical record system with [employer] dictation system. Although these documentations are being carefully reviewed, there may still be some phonetic and typographical changes. The errors are purely typographical, due to imperfection on the software program, and do not reflect any compromise in the patient's medical care. Plan discussed with: Patient, Other (RN) BENOIT JACKSON MD Apr 13, 2024 20:40
[2024-04-13] MEDS: MELATONIN 5 MG TAB PO SCH (21:40)
[2024-04-13 21:43] VITALS: PULSE 78; RESP 19; O2SAT 100
[2024-04-13] MEDS: IBUPROFEN 800 MG TAB PO ONE (23:22)
[2024-04-14] VITALS (7 sets, daily range): BP systolic 151–160; BP diastolic 79–92; PULSE 71–83; RESP 18–20; TEMP 97.8–98.2; O2SAT 97–100
[2024-04-14 04:34] LABS: Basophils # (auto) 0.1 10 ^3/uL (0-0.2); Basophils % (auto) 0.8 % (0.0-2.0); Eosinophils # (auto) 0.1 10 ^3/uL (0-0.8); Eosinophils % (auto) 0.7 % (0.0-7.0); Hemoglobin 12.9 g/dL (13.5-17.5); Lymphocytes # (auto) 2.3 10 ^3/uL (0.4-5.4); Lymphocytes % (auto) 20.5 % (10.0-50.0); Mean Corpuscular Hemoglobin 27.3 pg (28.0-32.0); Mean Corpuscular Hgb Conc. 33.2 g/dL (32.0-36.0); Mean Corpuscular Volume 82.2 fL (80.0-100.0); Monocytes # (auto) 0.9 10 ^3/uL (0-1.3); Monocytes % (auto) 8.1 % (0.0-12.0); Neutrophils # (auto) 7.9 10 ^3/uL (1.6-8.6); Neutrophils % (auto) 69.9 % (37.0-80.0); Platelet Count (auto) 307 10^3/uL (140-450); Red Blood Cells 4.75 10^6/uL (4.5-5.90); Red Cell Distribution Width 14.1 % (11.8-14.3); White Blood Cell 11.3 10^3/uL (4.4-10.8)
[2024-04-14 04:52] LABS: Chloride 106 mmol/L (98-107)
[2024-04-14 04:53] LABS: Calcium 9.1 mg/dL (8.7-10.4)
[2024-04-14 04:54] LABS: Anion Gap 8 (5-15); Carbon Dioxide 22 mmol/L (20-31)
[2024-04-14 04:59] LABS: BUN/Creatinine Ratio 13.9 (10.0-20.0); Blood Urea Nitrogen 10 mg/dL (9-23)
[2024-04-14 05:10] LABS: Glucose 114 mg/dL (74-106); Potassium 3.4 mmol/L (3.5-5.1); Sodium 136 mmol/L (136-145)
[2024-04-14] MEDS: hydrALAZINE HCL 20 MG/ML VL IV PRN (09:22)
--- NOTE | 2024-04-14 09:39 | DVHPN2 ---
Subjective Denies any symptoms at this time Reviewed: Care Plan, H&P, Labs, Medications, Previous Orders, Radiology, Other Changes from previous H/P or p: No Changes General: Per HPI Eyes: No Pain, No Vision change, No Conjunctivae inflammation, No Eyelid inflammation, No Other, No Redness ENT: No Ear pain, No Ear discharge, No Nose pain, No Nose discharge, No Nose congestion, No Mouth pain, No Mouth swelling, No Throat pain, No Throat swelling, No Other Cardiovascular: No Chest Pain, No Palpitations, No Orthopnea, No Paroxysmal Noc. Dyspnea, No Edema, No Lt Headedness, No Other Respiratory: No Cough, No Dry; Shortness of breath; No SOB with excertion, No Wheezing, No Hemoptysis, No Pleuritic Pain, No Sputum, No Other Gastrointestinal: No Nausea, No Vomiting, No Abdominal Pain, No Diarrhea, No Constipation, No Melena, No Hematochezia, No Other Genitourinary: No Dysuria, No Frequency, No Incontinence, No Hematuria, No Retention, No Other Musculoskeletal: No other, No neck pain, No shoulder pain, No arm pain, No back pain, No hand pain, No leg pain, No foot pain Skin: No Rash, No Lesions, No Jaundice, No Bruising, No Other Objective Vitals Vital Signs Date Time Temp Pulse Resp B/P (MAP) Pulse Ox O2 Delivery O2 Flow Rate FiO2 04/14/24 09:22 158/75 04/14/24 08:00 48 04/14/24 08:00 98.2 16 100 98.2 04/14/24 08:00 Room Air* 0 21 Intake/Output Intake and Output 04/14/24 07:00 Intake Total 970 ml Balance 970 ml Intake IV Total 970 ml # Voids 6 # Bowel Movements 5 General Appearance: Alert, Oriented X3, Cooperative, No acute distress HEENT: Atraumatic, PERRLA Lungs: Clear to auscultation Cardiovascular: Regular rate, Normal S1, Normal S2, No murmurs, Other Abdomen: Normal bowel sounds, Soft Musculoskeletal: Normal sensory function, Normal motor function Neuro: Other (Constipation) Skin: Dry, Intact Psych/Mental Status: Mental status NL, Mood NL Medications Current Medications Medications Dose Ordered Sig/Jen Route Start Time Stop Time Status Last Admin Dose Admin Sodium Chloride 1,000 ml @ 60 mls/hr [id number] IV 04/11/24 02:30 04/13/24 04:32 60 MLS/HR Acetaminophen/ Hydrocodone Bitart 1 tab Q4HP PRN PO 04/11/24 02:30 Ondansetron HCl 4 mg Q4HP PRN IV 04/11/24 02:30 Docusate Sodium 100 mg BIDPRN PRN PO 04/11/24 02:30 Nitroglycerin 0.4 mg Q5MINP PRN SL 04/11/24 05:15 Morphine Sulfate 2 mg Q30M PRN IV 04/11/24 05:15 Acetaminophen 650 mg Q4HP PRN PO 04/11/24 11:30 Hydralazine HCl 10 mg Q6HP PRN IV 04/12/24 07:30 04/14/24 09:22 10 MG Labetalol HCl 10 mg Q2HPRN PRN IV 04/12/24 09:45 04/12/24 21:00 10 MG Lorazepam 1 mg Q4HPRN PRN IV 04/13/24 03:02 Vancomycin HCl 0 ml @ 0 mls/hr UD IV 04/13/24 07:15 Vancomycin HCl 250 ml @ 250 mls/hr Q12H IV 04/13/24 21:00 04/13/24 21:19 250 MLS/HR Melatonin 10 mg HS PO 04/13/24 22:00 04/13/24 21:40 10 MG Laboratory Results Laboratory Tests 04/14/24 04:13 Chemistry Test 04/14/24 04:13 Calcium Level 9.1 mg/dL (8.7-10.4) Urinalysis Test 04/11/24 07:55 Urine Color Yellow (Yellow) Urine Clarity Turbid (Clear) H Urine pH 7.0 (5.0-9.0) Urine Specific [place] 1.026 (1.001-1.035) Urine Protein Trace (Negative) H Urine Ketones 2+ (Negative) H Urine Blood Negative /uL (Negative) Urine Nitrite Negative (Negative) Urine Bilirubin Negative (Negative) Urine Urobilinogen Normal mg/dL (Negative) Urine Leukocyte Esterase Negative /uL (Negative) Urine RBC 45 /hpf (0 - 3) Urine WBC 2 /hpf (0 - 3) Urine Squamous Epithelial Cells None seen /hpf (<5) Urine Bacteria None seen /hpf (None Seen) Urine Glucose Normal mg/dL (Normal) Microbiology Microbiology Date/Time Source Procedure Growth Status 04/13/24 08:11 Blood Blood Culture - Preliminary NO GROWTH AFTER 24 HOURS OF INCUBATION. Resulted 04/12/24 09:45 Bronchial Washings Gram Stain - Final Resulted 04/12/24 09:45 Bronchial Washings Respiratory Culture - Preliminary Resulted 04/11/24 07:55 Urine - [place] Urine Culture - Final Complete Labs and/or images reviewed: Labs reviewed by me, Image(s) reviewed by me Assessment/Plan Assessment/Plan Impression: -sepsis -aspiration pneumonia -Polysubstance abuse -Toxic metabolic encephalopathy -acute hypoxic and hypercarbic respiratory failure from polysubstance abuse Plan: Events: Plan of care with patient. Patient ambulating on room air. Denies any symptoms. Repeat blood culture negative for growth times 24 hours. Patient received potassium replacement for K of 3.4. Given no history of IV drug use in TTE negative for any valvular disorder, we will continue current treatment -continue vancomycin -PUD/DVT prophylaxis -lorazepam p.r.n. withdrawal symptoms Total time spent with patient discussing and formulating plan of care: 35 minutes. This medical document was created using an electronic medical record system with [employer] dictation system. Although this document has been carefully reviewed, there may still be some phonetic and typographical errors. These areas are purely typographical due to imperfections of the software programs, and do not reflect any compromise in the patient's medical care. Plan discussed with: Patient, Other (RN) My Orders Orders - KAMALJIT QUINTERO NP Procedure Category Date Status Time Amlodipine Tablet PHA 04/14/24 Verified (Norvasc Tablet) 10:00 Potassium Er Tablet PHA 04/14/24 Verified (Klor-Con Tablet) 09:45 Date of Service: Apr 14, 2024 Billing Provider: KAMALJIT QUINTERO NP Common Visit Codes: [id number] INP/OBS CARE(HIGH) KAMALJIT QUINTERO NP Apr 14, 2024 09:39
[2024-04-14] MEDS: amLODIPine BESYLATE 5 MG TAB PO SCH (09:44)
[2024-04-14] MEDS: POTASSIUM CHL 20 Meq TABLET PO ONE (09:45)
[2024-04-14] MEDS: LORazepam 2MG/ML-1ML VIAL IV PRN (12:41)
[2024-04-14] MEDS ORDERED: GABA-339 PO (13:36)
[2024-04-14] MEDS: GABAPENTIN 400 MG CAP PO ONE (14:59)
[2024-04-14] MEDS: GABAPENTIN 400 MG CAP PO SCH (20:56)
--- NOTE | 2024-04-14 23:46 | DVHPN2 ---
Progress Note - Dictate Date Seen: Apr 14, 2024 Medical Necessity Reason Pt with a Central, PICC or Fol: Yes The following are medically ne: Galaviz Catheter Reason for galaviz catheter: Strict I&O Subjective Patient seen and examined at bedside. S/p extubation, currently on room air. Overnight events reviewed. vital signs Vital Sign Date Time Temp Pulse Resp B/P (MAP) Pulse Ox O2 Delivery O2 Flow Rate FiO2 04/14/24 21:55 158/79 04/14/24 21:00 98.2 83 20 98 98.2 04/14/24 20:00 Room Air* 0 30 21 Total Intake and Output 04/13/24 04/13/24 04/14/24 15:00 23:00 07:00 Intake Total 490 ml 480 ml Balance 490 ml 480 ml medications Current Medications Medications Dose Ordered Sig/Jen Route Start Time Stop Time Status Last Admin Dose Admin Acetaminophen/ Hydrocodone Bitart 1 tab Q4HP PRN PO 04/11/24 02:30 Ondansetron HCl 4 mg Q4HP PRN IV 04/11/24 02:30 Docusate Sodium 100 mg BIDPRN PRN PO 04/11/24 02:30 Nitroglycerin 0.4 mg Q5MINP PRN SL 04/11/24 05:15 Morphine Sulfate 2 mg Q30M PRN IV 04/11/24 05:15 Acetaminophen 650 mg Q4HP PRN PO 04/11/24 11:30 Hydralazine HCl 10 mg Q6HP PRN IV 04/12/24 07:30 04/14/24 21:55 10 MG Labetalol HCl 10 mg Q2HPRN PRN IV 04/12/24 09:45 04/12/24 21:00 10 MG Lorazepam 1 mg Q4HPRN PRN IV 04/13/24 03:02 Vancomycin HCl 0 ml @ 0 mls/hr UD IV 04/13/24 07:15 Vancomycin HCl 250 ml @ 250 mls/hr Q12H IV 04/13/24 21:00 04/14/24 20:56 250 MLS/HR Melatonin 10 mg HS PO 04/13/24 22:00 04/14/24 21:32 10 MG Amlodipine Besylate 10 mg DAILY PO 04/14/24 10:00 04/14/24 09:44 10 MG Gabapentin 800 mg BID PO 04/14/24 22:00 04/14/24 20:56 800 MG objective Gen.: Patient lying in bed in no apparent distress. Breathing on room air. Head: Normocephalic, atraumatic. Eyes: EOMI/PERRLA. Ears: Normal hearing. Normal anatomy. Neck/trachea: Trachea midline, supple. Nose: Normal external anatomy. Mouth: Moist mucous membranes. Chest: Decreased air entry bilaterally. No wheezing or rhonchi. Cardiovascular: Positive S1, positive S2. Regular rate and rhythm. Abdomen: Positive bowel sounds in all 4 quadrants. Soft, non-tender, non- distended. : Deferred. Rectal: Deferred. Skin: Warm, dry. Intact. Extremities: 2+ radial pulses bilaterally. No lower extremity edema. Neuro: Awake, alert, oriented x3. No gross motor or sensory deficits. Cranial nerves II through XII intact. Gait not assessed. laboratory and microbiology Laboratory Tests 04/14/24 04:13 Test 04/14/24 04:13 Range/Units Serum Glucose 114 H 74-106 mg/dL Assessment/Plan Impression: Acute hypoxic respiratory failure On mechanical ventilator Acute metabolic/toxic encephalopathy Polysubstance abuse Aspiration pneumonia, likely gram negative Pleural effusion, right Atelectasis Obesity BMI 30 Events: S/p extubation, currently on room air No respiratory distress. Chest x-ray reveals no acute abnormalities. Continue antibiotics Note, pt is refusing antibiotics and medical treatment. He is alert and oriented x3. Counseled on risks - pt voiced understanding Incentive spirometry Pain control Avoid oversedation 04/12/24 - S/p therapeutic bronchoscopy w/ RML BAL - Mucous plugging from L1-L3 and R6-R10 See separate procedure note for details. Labs and imaging reviewed. Rest of plan as noted below. Plan: s/p extubation on 04/12/24 On room air Supplemental O2 PRN Off sedation Continue antibiotics. F/u cultures. Start pressors if necessary to maintain a mean arterial blood pressure greater than 65 mmHg. Monitor renal function Monitor electrolytes. Supplement as necessary. Monitor ins and outs. Maintain euvolemia. GI prophylaxis. DVT prophylaxis. Prognosis: Poor given patient's multiple co-morbidities. Rest of plan per hospitalist and other consultants. Thank you Alden Huizar NP, for allowing me to participate in this patient's care. Further recommendations will depend on the patient's clinical course. Please do not hesitate to contact me if you have any questions or concerns. This medical document was created using an electronic medical record system with [employer] dictation system. Although these documentations are being carefully reviewed, there may still be some phonetic and typographical changes. The errors are purely typographical, due to imperfection on the software program, and do not reflect any compromise in the patient's medical care. BENOIT JACKSON MD Apr 14, 2024 23:46
[2024-04-14] MEDS: HYDROcodone-ACET 5/325MG TAB PO PRN (23:48)
[2024-04-15 01:00] VITALS: BP 147/80; PULSE 71; RESP 19; TEMP 98.1; O2SAT 97
[2024-04-15 05:00] VITALS: BP 141/69; PULSE 84; RESP 22; TEMP 97.8; O2SAT 99
[2024-04-15 09:00] VITALS: BP 146/79; PULSE 86; RESP 18; TEMP 97.4; O2SAT 98
[2024-04-15] MEDS: SULFAMETHOX W/TRIMETH(800/160MG) DS TAB PO SCH (09:26)
--- NOTE | 2024-04-15 09:26 | DVHDS2 ---
Discharge Summary Date of Admission Apr 11, 2024 at 05:14 Date of Discharge: Apr 15, 2024 Admitting Diagnosis Altered mental status Labs/Diagnostic Data: Laboratory Results Test 04/14/24 16:20 04/14/24 04:13 04/12/24 15:30 04/12/24 07:20 Miscellaneous Referred Test (Rm Tmp Sent to [facility] White Blood Count 11.3 10^3/uL (4.4-10.8) Red Blood Count 4.75 10^6/uL (4.5-5.90) Hemoglobin 12.9 g/dL (13.5-17.5) Hematocrit 39.0 % (41.0-53.0) Mean Corpuscular Volume 82.2 fL (80.0-100.0) Mean Corpuscular Hemoglobin 27.3 pg (28.0-32.0) Mean Corpuscular Hemoglobin Concent 33.2 g/dL (32.0-36.0) Red Cell Distribution Width 14.1 % (11.8-14.3) Platelet Count 307 10^3/uL (140-450) Mean Platelet Volume 6.6 fL (6.9-10.8) Neutrophils (%) (Auto) 69.9 % (37.0-80.0) Lymphocytes (%) (Auto) 20.5 % (10.0-50.0) Monocytes (%) (Auto) 8.1 % (0.0-12.0) Eosinophils (%) (Auto) 0.7 % (0.0-7.0) Basophils (%) (Auto) 0.8 % (0.0-2.0) Neutrophils # (Auto) 7.9 10 ^3/uL (1.6-8.6) Lymphocytes # (Auto) 2.3 10 ^3/uL (0.4-5.4) Monocytes # (Auto) 0.9 10 ^3/uL (0-1.3) Eosinophils # (Auto) 0.1 10 ^3/uL (0-0.8) Basophils # (Auto) 0.1 10 ^3/uL (0-0.2) Nucleated Red Blood Cells 0.0 % Sodium Level 136 mmol/L (136-145) Potassium Level 3.4 mmol/L (3.5-5.1) Chloride Level 106 mmol/L (98-107) Carbon Dioxide Level 22 mmol/L (20-31) Anion Gap 8 (5-15) Blood Urea Nitrogen 10 mg/dL (9-23) Creatinine 0.72 mg/dL (0.700-1.30) Glomerular Filtration Rate Calc 121 mL/min (>90) BUN/Creatinine Ratio 13.9 (10.0-20.0) Serum Glucose 114 mg/dL (74-106) Calcium Level 9.1 mg/dL (8.7-10.4) Blood Gas Specimen Type Arterial Blood Gas Sample Site Right radial Blood Gas Patient Temperature 37.0 Arterial Blood Date Drawn [id number] Arterial Blood pH 7.475 (7.350-7.450) Arterial Blood Partial Pressure CO2 28.6 mmHg (35.0-48.0) Arterial Blood Partial Pressure O2 104.1 mmHg (83.0-108.0) Arterial Blood HCO3 20.6 mmol/L (21.0-28.0) Arterial Blood Oxygen Saturation 98.1 % (94.0-98.0) Arterial Blood Base Excess -1.7 mmol/L (-2.0-3.0) Arterial Blood Oxyhemoglobin 97.3 % (94.0-98.0) Arterial Blood Carboxyhemoglobin 0.3 % (0.5-1.5) Arterial Blood Methemoglobin 0.5 % (0.0-1.5) Chad Test Modified Blood Gas Total Hemoglobin 14.20 g/dL (13.5-17.5) Blood Gas Modality Vent - cpap Blood Gas Spontaneous Rate 30 FiO2 % 30.0 Blood Gas Spontaneous Tidal Volume 660 Blood Gas Pressure Support 8 Blood Gas PEEP or CPAP 5.0 Blood Gas Set Respiration Rate 20.0 Blood Gas Tidal Volume 500.0 Test 04/12/24 02:58 04/11/24 07:55 04/11/24 01:51 04/11/24 00:25 Total Bilirubin 0.4 mg/dL (0.2-1.0) Aspartate Amino Transferase (AST) 23 U/L (13-40) Alanine Aminotransferase (ALT) 23 U/L (7-40) Alkaline Phosphatase 80 U/L (46-116) Total Protein 6.5 g/dL (5.7-8.2) Albumin 3.6 g/dL (3.2-4.8) Urine Color Yellow (Yellow) Urine Clarity Turbid (Clear) Urine pH 7.0 (5.0-9.0) Urine Specific Bee 1.026 (1.001-1.035) Urine Protein Trace (Negative) Urine Ketones 2+ (Negative) Urine Blood Negative /uL (Negative) Urine Nitrite Negative (Negative) Urine Bilirubin Negative (Negative) Urine Urobilinogen Normal mg/dL (Negative) Urine Leukocyte Esterase Negative /uL (Negative) Urine RBC 45 /hpf (0 - 3) Urine WBC 2 /hpf (0 - 3) Urine Squamous Epithelial Cells None seen /hpf (<5) Urine Bacteria None seen /hpf (None Seen) Urine Glucose Normal mg/dL (Normal) Urine Opiates Screen Neg (NEGATIVE) Urine Fentanyl Screen Pos (NEGATIVE) Urine Barbiturates Screen Neg (NEGATIVE) Urine Phencyclidine Screen Neg (NEGATIVE) Urine Amphetamines Screen Pos (NEGATIVE) Urine Benzodiazepines Screen Pos (NEGATIVE) Urine Cocaine Screen Pos (NEGATIVE) Urine Cannabinoids Screen Pos (NEGATIVE) Blood Gas Critical Value Read Back Yes Blood Gas Notified Whom Dr. chaves Blood Gas Notified Time [id number] Blood Gas Notified By Spragger carlton sylvester Prothrombin Time 11.1 sec (9.3-11.8) Prothrombin Time INR 1.05 (0.9-1.15) Activated Partial Thromboplast Time 35.8 SEC (24.5-34.5) Lactic Acid Level 1.1 mmol/L (0.4-2.0) Magnesium Level 2.1 mg/dL (1.6-2.6) Plasma/Serum Blood Alcohol 7.3 mg/dL (<10) Other Laboratory Tests 04/14/24 04:13 Brief Hx & Hospital Course: History of Present Illness The patient is a 38-year-old male with unknown past medical history presented to [facility] ED for evaluation of altered level of consciousness. As reported by EMS, patient was combative, agitated, and disoriented at home. Patient was noted to have history of fentanyl and methamphetamine abuse and was given Narcan by family member as occupational nurse were called. On the scene, patient continued to be agitated and combative, was given Versed 5 mg a.m., followed by another dose of Narcan 0.5 injectable. Patient became altered with respiratory distress agonal breathing, grunting, retractions 10 minutes prior to arrival to the ED, O2 saturation in the 70s on room air and was subsequently intubated due to high probability of clinically significant life-threatening deterioration. Laboratory data shows elevated WBC 13.1, platelets 358, sodium 136, potassium 4.0, BUN 12, creatinine 1.09, glucose 126, plasma/serum alcohol 7.3. Chest x-ray revealing small right pleural effusion and right basal consolidation which could reflect atelectasis or pneumonia. Please see medication orders section in the computer. On my assessment, patient remains fully intubated, no diaphoresis, no diarrhea, no vomiting, no fever, no chills. Patient was admitted for further evaluation and medical management. Course of hospitalization: Patient was subsequently intubated and placed on mechanical ventilation. Patient was seen by pulmonology, undergoing bronchoscopy for possible aspiration pneumonia. Patient was successfully weaned from mechanical ventilation. Blood culture did come back positive for Staphylococcus aureus, which was being treated since admission with vancomycin. Repeat blood culture has no growth. Sputum culture also positive for MRSA. Patient was currently on room air, ambulating without any dyspnea. Patient will be transitioned to Bactrim DS patient was x7 days. Patient will follow up with the discharge Clinic in one week. Long discussion was made with the patient regarding his positive toxicology, for which the patient states that he was at a alliance party and prior to coming in the hospital. Lifestyle modification education given to the patient. All questions answered. Physical examination General: Alert and Oriented x3. No acute distress. Well-nourished. Eyes: EOMI. Anicteric. HENT: Moist mucous membranes. Lungs: Clear to auscultation bilaterally. No accessory muscle use. Cardiovascular: Regular rate and rhythm. No murmur. No JVD. Abdomen: Soft, non-tender and non-distended. No palpable masses. Extremities: No edema. Non-tender. Skin: No rashes or lesions. Warm. Neurologic: No focal neurological deficits. CN II-XII grossly intact, but not individually tested. Psychiatric: Cooperative. Appropriate mood and affect. Total time spent with patient and family regarding advance care plannin minutes. Total time spent with patient discussing and formulating plan of care: 35 minutes. This medical document was created using an electronic medical record system with [employer] system. Although this document has been carefully reviewed, there may still be some phonetic and typographical errors. These areas are purely typographical due to imperfections of the software programs, and do not reflect any compromise in the patient's medical care. Consults/Reason for consult Pulmonology: Acute respiratory failure Operations or Procedures 04/12/2024: Bronchoscopy Condition at Discharge: Fair Final Diagnosis/Problems List Toxic Metabolic Encephalopathy Secondary Diagnosis: -sepsis secondary to Staphylococcus aureus -pneumonia involving MRSA -Polysubstance abuse -Toxic metabolic encephalopathy -acute hypoxic and hypercarbic respiratory failure from polysubstance abuse Discharge Disposition: Home Discharge Instruct/Medications Diet: Regular Activity: No Restrictions, As Tolerated Follow Up/Referral: DC clinic in 1 week Medications: Bactrim DS BID x 7 days 36 Discharge Statement: "Patient was advised to return to the ER or call 911 if any headaches, dizziness, shortness of breath, chest pain, abdominal pain, bleeding, fevers, or worsening of medical condition. Patient was counseled about treatment plan, medications, possible side effects, patientverbalized understanding. All questions were answered to the best of my ability. This discharge took greater then 30 minutes in planning, reviewing documentation, counseling the patient, and discussing with other team members." ASSESSMENT ASSESSMENT Assessment Toxic Metabolic Encephalopathy Date of Service: Apr 15, 2024 Billing Provider: KAMALJIT QUINTERO NP Common Visit Codes: 06349-DIU/OBS DISCH DAY >30min KAMALJIT QUINTERO NP Apr 15, 2024 09:26
[2024-04-15] MEDS ORDERED: BACDST PO (09:27)
--- NOTE | 2024-04-15 22:56 | DVHPN2 ---
Progress Note - Dictate Date Seen: Apr 15, 2024 Medical Necessity Reason Pt with a Central, PICC or Fol: No The following are medically ne: Galaviz Catheter Reason for galaviz catheter: Strict I&O Subjective Patient seen and examined at bedside. Breathing on room air. Overnight events reviewed. vital signs Vital Sign Date Time Temp Pulse Resp B/P (MAP) Pulse Ox O2 Delivery O2 Flow Rate FiO2 04/15/24 09:27 146/79 04/15/24 09:00 97.4 86 18 98 97.4 04/15/24 08:00 Room Air* 0 30 21 Total Intake and Output 04/14/24 04/14/24 04/15/24 15:00 23:00 07:00 Intake Total 250 ml 250 ml 500 ml Balance 250 ml 250 ml 500 ml objective Gen.: Patient lying in bed in no apparent distress. On room air. Head: Normocephalic, atraumatic. Eyes: EOMI/PERRLA. Ears: Normal hearing. Normal anatomy. Neck/trachea: Trachea midline, supple. Nose: Normal external anatomy. Mouth: Moist mucous membranes. Chest: Decreased air entry bilaterally. No wheezing or rhonchi. Cardiovascular: Positive S1, positive S2. Regular rate and rhythm. Abdomen: Positive bowel sounds in all 4 quadrants. Soft, non-tender, non- distended. : Deferred. Rectal: Deferred. Skin: Warm, dry. Intact. Extremities: 2+ radial pulses bilaterally. No lower extremity edema. Neuro: Awake, alert, oriented x3. No gross motor or sensory deficits. Cranial nerves II through XII intact. Gait not assessed. laboratory and microbiology Laboratory Tests 04/14/24 04:13 Test 04/14/24 04:13 Range/Units Serum Glucose 114 H 74-106 mg/dL Assessment/Plan Impression: Acute hypoxic respiratory failure On mechanical ventilator Acute metabolic/toxic encephalopathy Polysubstance abuse Aspiration pneumonia, likely gram negative Pleural effusion, right Atelectasis Obesity BMI 30 Events: Remains on room air No respiratory distress. Continue antibiotics Incentive spirometry Pain control Avoid oversedation Patient is stable for discharge from the pulmonary standpoint. 04/12/24 - S/p therapeutic bronchoscopy w/ RML BAL - Mucous plugging from L1-L3 and R6-R10 See separate procedure note for details. Labs and imaging reviewed. Rest of plan as noted below. Plan: s/p extubation on 04/12/24 On room air Supplemental O2 PRN Off sedation Continue antibiotics. F/u cultures. Start pressors if necessary to maintain a mean arterial blood pressure greater than 65 mmHg. Monitor renal function Monitor electrolytes. Supplement as necessary. Monitor ins and outs. Maintain euvolemia. GI prophylaxis. DVT prophylaxis. Prognosis: Poor given patient's multiple co-morbidities. Rest of plan per hospitalist and other consultants. Thank you Alden Huizar NP, for allowing me to participate in this patient's care. Further recommendations will depend on the patient's clinical course. Please do not hesitate to contact me if you have any questions or concerns. This medical document was created using an electronic medical record system with [employer] computerized dictation system. Although these documentations are being carefully reviewed, there may still be some phonetic and typographical changes. The errors are purely typographical, due to imperfection on the software program, and do not reflect any compromise in the patient's medical care. Plan discussed with: Patient, Other (JONA Falcon) BENOIT JACKSON MD Apr 15, 2024 22:56
== END 2024-04-15 13:00 | disposition home or self-care (01) | DRG 720 ==
LOC: ER 00:09 → EDBD 00:09 → TELE 05:14 → TELE-EAST 04-14 18:43 → EAST 04-14 18:52
PROVIDERS: ADMIT Nurse Practitioner Family; ATTEND Nurse Practitioner Acute Care
PROC: 5A1945Z Respiratory Ventilation, 24-96 Consecutive Hours (ICD-10-PCS; principal; 2024-04-11)
PROC: 0BH17EZ Insertion of Endotracheal Airway into Trachea, Via Natural or Artificial Opening (ICD-10-PCS; 2024-04-11)
PROC: 0B9D8ZX Drainage of Right Middle Lung Lobe, Via Natural or Artificial Opening Endoscopic, Diagnostic (ICD-10-PCS; 2024-04-12)
PROC: 0BC78ZZ Extirpation of Matter from Left Main Bronchus, Via Natural or Artificial Opening Endoscopic (ICD-10-PCS; 2024-04-12)
DX: A41.01 Sepsis due to Methicillin susceptible Staphylococcus aureus (principal); J96.01 Acute respiratory failure with hypoxia; J69.0 Pneumonitis due to inhalation of food and vomit; G92.8 Other toxic encephalopathy; J90 Pleural effusion, not elsewhere classified; J15.212 Pneumonia due to Methicillin resistant Staphylococcus aureus; E87.3 Alkalosis; J96.02 Acute respiratory failure with hypercapnia; F11.10 Opioid abuse, uncomplicated; E66.9 Obesity, unspecified; F15.10 Other stimulant abuse, uncomplicated; F17.200 Nicotine dependence, unspecified, uncomplicated; Z68.30 Body mass index [BMI] 30.0-30.9, adult; Z88.0 Allergy status to penicillin
CPT/HCPCS: 31500; 31624; 36415; 36600; 70450; 71045; 72125; 80048; 80053; 80307; 80320; 81001; 82805; 83605; 83735; 85025; 85610; 85730; 87040; 87070; 87077; 87086; 87186; 87205; 93306; 94002; 94003; 94640; 99291; G0378; J2405; J2543; J2704; J3490; J7060